=== PATIENT | female | born 1960 | race Caucasian/White ===

== ENCOUNTER → 2016-09-20 | Outpatient (CLI) | payer MEDICARE, OTHER ==
[2016-09-20 10:20] LABS: ALT 55 U/L (9-52); AST 34 U/L (14-36); Alkaline Phosphatase 74 U/L (38-126); Anion Gap 8 mmol/L; Blood Urea Nitrogen 21 mg/dL (7-17); Calcium 9.6 mg/dL (8.4-10.2); Carbon Dioxide 31 mmol/L (22-30); Chloride 102 mmol/L (98-107); Cholesterol 174 mg/dL (<200); Glucose 122 mg/dL (74-99); HDL Cholesterol 69 mg/dL (40-60); Non-African American GFR(MDRD) >60 (>60 ml/min/1.73 sqM); Potassium 4.5 mmol/L (3.5-5.1); Sodium 141 mmol/L (137-145); Total Bilirubin 0.9 mg/dL (0.2-1.3); Total Protein 7.5 g/dL (6.3-8.2); Triglycerides 134 mg/dL (<150)
== END | disposition home or self-care (01) ==
LOC: LABWHC1 09:05
PROVIDERS: ATTEND Internal Medicine
DX: E03.9 Hypothyroidism, unspecified (principal); E88.81 Metabolic syndrome and other insulin resistance; E11.65 Type 2 diabetes mellitus with hyperglycemia
CPT/HCPCS: 36415; 80053; 80061; 82043; 84439; 84443

== ENCOUNTER → 2016-11-16 | Outpatient (CLI) | payer MEDICARE, OTHER ==
--- NOTE | 2016-11-16 09:42 | US ---
EXAMINATION TYPE: US abdomen complete DATE OF EXAM: 11/16/2016 COMPARISON: 2009 ultrasound abdomen 07/16/2009 CLINICAL HISTORY: R94.5 Abn Liver function test K76.0 Fatty Liver. Pt had lap band 2009, removed 2015 EXAM MEASUREMENTS: Liver Length: 16.9 cm Gallbladder Wall: 0.2 cm CBD: 0.8 cm Spleen: 12.4 cm Right Kidney: 10.7 x 4.6 x 5.2 cm Left Kidney: 10.4 x 4.1 x 4.8 cm Pancreas: wnl, portions seen Liver: wnl heterogenous. Some echogenic signal appears to be at the falciform ligament. This is not clearly identified on the comparison 2009 comparison. Consider follow-up ultrasound. Gallbladder: wnl Evidence for sonographic Barillas's sign: No CBD: wnl Spleen: wnl Right Kidney: No hydronephrosis or masses seen Left Kidney: No hydronephrosis or masses seen Upper IVC: wnl Abd Aorta: wnl IMPRESSION: 1. Echogenic area within the region of the falciform ligament likely is of normal finding. However, t his area was not identified 2009. Recommend short-term follow-up ultrasound in 3 months to reevaluate the liver.
--- NOTE | 2016-11-16 11:13 | US ---
EXAMINATION TYPE: US transvaginal DATE OF EXAM: 11/16/2016 COMPARISON: 2014 CLINICAL HISTORY: R10.2 Pelvic and Perineal Pain. TECHNIQUE: Transvaginal (TV) Date of LMP: 1999 EXAM MEASUREMENTS: Uterus: Surgically absent cm Endometrial Stripe: Surgically absent Right Ovary: 1.9 X 1.1 X 1.4 cm Left Ovary: Surgically absent cm 1. Uterus: Surgically absent 2. Endometrium: Surgically absent 3. Right Ovary: Surgically absent 4. Left Ovary: portions seen wnl 5. Bilateral Adnexa: wnl 6. Posterior cul-de-sac: wnl IMPRESSION: 1. Normal postsurgical pelvic ultrasound
== END | disposition home or self-care (01) ==
LOC: RADUSWWP 08:25
PROVIDERS: ATTEND Internal Medicine Gastroenterology
DX: K76.0 Fatty (change of) liver, not elsewhere classified (principal); K59.00 Constipation, unspecified; R94.5 Abnormal results of liver function studies
CPT/HCPCS: 76700; 76830

== ENCOUNTER → 2016-11-16 | Outpatient (CLI) | payer MEDICARE, OTHER | END | disposition home or self-care (01) | LOC: RADUSWWP 08:29 | PROVIDERS: ATTEND Family Medicine | DX: Z53.9 Procedure and treatment not carried out, unspecified reason (principal) ==

== ENCOUNTER → 2017-02-27 | Outpatient (CLI) | payer MEDICARE, OTHER ==
--- NOTE | 2017-02-27 11:18 | US ---
EXAMINATION TYPE: US abdomen complete DATE OF EXAM: 02/27/2017 COMPARISON: Complete abdominal ultrasound November 16, 2016 CLINICAL HISTORY: R94.5 Abn Liver function tests, K76.0 Fatty liver. Fatty liver, elevated LFT's, obe se patient EXAM MEASUREMENTS: Liver Length: 19.6 cm Gallbladder Wall: 0.2 cm CBD: 0.8 cm Spleen: 12.5 cm Right Kidney: 11.2 x 4.9 x 6.1 cm Left Kidney: 12.3 x 5.2 x 5.9 cm Pancreas: visualized portions wnl, tail obscured by overlying midline bowel gas Liver: enlarged at 19.6cm, course echotexture, increased echogenicity throughout Gallbladder: wnl Evidence for sonographic Barillas's sign: no CBD: Mildly dilated at 0.8cm Spleen: wnl Right Kidney: wnl Left Kidney: wnl Upper IVC: wnl Abd Aorta: wnl The visualized liver remains heterogeneously hyperechoic. Evaluation for focal masses is suboptimal d ue to the heterogeneity. No intrahepatic ductal dilatation is seen. The intrahepatic portion of the I VC and visualized abdominal aorta are within normal limits. There is no evidence of cholelithiasis. Common bile duct is stable and mildly dilated. The visualized portions of the pancreas are homogeno us. The spleen is unremarkable. Kidneys are symmetric and free of hydronephrosis. No renal lesions are seen. IMPRESSION: Heterogeneous hyperechoic appearance of liver is likely product of diffuse fatty infiltra tion, underlying hepatocellular disease is not excluded. No significant change from prior ultrasound is noted.
== END | disposition home or self-care (01) ==
LOC: RADUSWWP 08:23
PROVIDERS: ATTEND Internal Medicine Gastroenterology
DX: R93.2 Abnormal findings on diagnostic imaging of liver and biliary tract (principal); R94.5 Abnormal results of liver function studies; R93.5 Abnormal findings on diagnostic imaging of other abdominal regions, including retroperitoneum; K76.0 Fatty (change of) liver, not elsewhere classified
CPT/HCPCS: 36415; 76700; 80076; 83036; 84439; 84443; 84481

== ENCOUNTER → 2017-02-27 | Outpatient (CLI) | payer MEDICARE, OTHER ==
[2017-02-27 11:04] LABS: Bilirubin, Delta 0.2 mg/dL (0.0-0.2); Total Bilirubin 0.7 mg/dL (0.2-1.3); Total Protein 6.9 g/dL (6.3-8.2)
[2017-02-27 13:31] LABS: Hemoglobin A1C 5.8 % (4.2-6.1)
== END | disposition home or self-care (01) ==
LOC: LABWHC1 09:13
PROVIDERS: ATTEND Internal Medicine Gastroenterology
DX: E03.9 Hypothyroidism, unspecified (principal); E11.65 Type 2 diabetes mellitus with hyperglycemia; R79.89 Other specified abnormal findings of blood chemistry
CPT/HCPCS: 36415; 80076; 83036; 84439; 84443; 84481

== ENCOUNTER → 2017-08-02 | Outpatient (CLI) | payer MEDICARE, OTHER ==
--- NOTE | 2017-08-03 11:16 | BD ---
EXAMINATION TYPE: MG DEXA axial skeleton. DATE OF EXAM: 08/02/2017 COMPARISON: NONE CLINICAL HISTORY: Z13.820 Screening for Osteoporosis Height: 5 FT 2 IN Weight: 260 FRAX RISK QUESTIONS: Alcohol (3 or more units per day): NO Family History (Parent hip fracture): NO Glucocorticoids (More than 3mos): NO (Ex: prednisone, prednisolone, methylprednisolone, dexamethasone, and hydrocortisone). History of Fracture in Adulthood: YES Secondary Osteoporosis: 1. Type 1 Diabetes: NO 2. Hyperthyroidism: NO 3. Menopause before 45: NO 4. Malnutrition: NO 5. Chronic liver disease: YES Rheumatoid Arthritis: NO Current Tobacco Use: NO RISK FACTORS HISTORY OF: Surgery to Spine/Hip(right/left)/Wrist (right/left): LUMBAR SURG DISC 4-5 SURG 2012 LUMBAR DISC 3 201 7 Family History of Osteoporosis: YES Active: NO Postmenopausal woman: PART HYST AGE 39 MEDICATIONS: Thyroid Medications: YES Which medication: SYNTHROID How Lon YEARS Additional Medications: ANTIDEPRESSANTS, SYNTHROID, PROTONIX, PROZAC,SERAQUEL,METFORMIN, CHOLESTEROL MEDS, RESTASIS,ASPIRIN, MULTI VIT, BIOTIN, OMEGA 3 Additional History: EXAM MEASUREMENTS: Bone mineral density about the R hip (g/cm2): 1.030 Bone mineral density about the L hip (g/cm2): 0.970 T Score values are as follows: -----R Neck: -0.1 -----L Neck: -0.5 -----R Total: 0.6 -----L Total: 0.8 Bone mineral density has: DECREASED -0.5 % since study of: 2014 IMPRESSION: No evidence for osteoporosis or osteopenia. NOTE: T-SCORE=SD OF THE YOUNG ADULT MEAN.
--- NOTE | 2017-08-06 08:49 | MM ---
Reason for exam: clinical finding. Last mammogram was performed 5 years and 7 months ago. History: Patient is postmenopausal and has history of endometrial cancer at age 39. July 2005. Indicated problem(s): pain in both breasts. Physical Findings: Nurse did not find any significant physical abnormalities on exam. MG 3D Diag Mammo W/Cad JASON Bilateral CC and MLO view(s) were taken. Prior study comparison: March 09, 2016, mammogram. March 08, 2015, mammogram. December 25, 2011, bilateral digital screening mammo w/CAD. October 14, 2010, bilateral digital screening mammo w/CAD. The breast tissue is almost entirely fat. No significant new findings when compared with previous films. These results were verbally communicated with the patient and result sheet given to the patient on 08/02/17. ASSESSMENT: Incomplete: need additional imaging evaluation, BI-RAD 0 RECOMMENDATION: Ultrasound of both breasts.
--- NOTE | 2017-08-06 08:52 | USB ---
Reason for exam: additional evaluation requested from abnormal screening. History: Patient is postmenopausal and has history of endometrial cancer at age 39. Reductions, July 2005. US Breast Axilla RT Right breast axilla ultrasound demonstrates a 0.3 x 0.7 x 0.4cm node at the axilla and a 0.4 x 0.3 x 0.4cm round area to small to characterize, maybe a lymph node but does not have the typical appearance. These results were verbally communicated with the patient and result sheet given to the patient on 08/02/17. ASSESSMENT: Probably benign, BI-RAD 3 RECOMMENDATION: Ultrasound of the right breast in 6 months. (axilla and upper outer quadrant) Manage on a clinical basis with regard to axillary pain. MTDD
--- NOTE | 2017-08-06 08:54 | USB ---
Reason for exam: additional evaluation requested from abnormal screening. History: Patient is postmenopausal and has history of endometrial cancer at age 39. Reductions, July 2005. US Breast Axilla LT Left breast axilla ultrasound demonstrates a 0.8 x 0.4 x 0.5cm node at the axilla and a 0.9 x 0.2 x 0.8cm node at the axilla. These results were verbally communicated with the patient and result sheet given to the patient on 08/02/17. ASSESSMENT: Probably benign, BI-RAD 3 RECOMMENDATION: Clinical management of the left breast. Manage on a clinical basis with regard to axillary pain.
== END | disposition home or self-care (01) ==
LOC: RADMAMWWP 14:57
PROVIDERS: ATTEND Family Medicine
DX: N64.4 Mastodynia (principal); R22.9 Localized swelling, mass and lump, unspecified; Z13.820 Encounter for screening for osteoporosis
CPT/HCPCS: 77080; 77066; 76642; G0279

== ENCOUNTER → 2017-09-04 | Outpatient (CLI) | payer MEDICARE, OTHER ==
[2017-09-04 14:01] LABS: Albumin 4.5 g/dL (3.5-5.0); Bilirubin, Delta 0.3 mg/dL (0.0-0.2); Bilirubin,Unconjugated 0.5 mg/dL (0.0-1.1); Total Bilirubin 0.8 mg/dL (0.2-1.3); Total Protein 7.1 g/dL (6.3-8.2)
--- NOTE | 2017-09-04 15:00 | XR ---
Lumbar spine HISTORY: Pain 7 views of the lumbar spine submitted to include flexion and extension views. Comparison made to lumbar MRI 07/03/2013 Posterior fusion change at L4-5 is noted with associated loss of disc height, intervertebral spacing material present. There is anatomic alignment. Bone mineralization is reduced. Loss of disc height al so present L3-4. There is multilevel spondylosis present. No evident spondylolysis. Spinal curvature may be due to patient rotation. Sclerosis present in the posterior elements of the lower lumbar spine . IMPRESSION: Postop changes, degenerative disc disease, osteopenia. Facet arthropathy.
[2017-09-04 22:53] LABS: Hemoglobin A1C 6.5 % (4.0-6.0)
== END | disposition home or self-care (01) ==
LOC: LABWHC1 12:50
PROVIDERS: ATTEND Nurse Practitioner Family
DX: M51.16 Intervertebral disc disorders with radiculopathy, lumbar region (principal); E78.4 Other hyperlipidemia; K76.0 Fatty (change of) liver, not elsewhere classified; R94.5 Abnormal results of liver function studies; M46.96 Unspecified inflammatory spondylopathy, lumbar region; E55.9 Vitamin D deficiency, unspecified; Z13.1 Encounter for screening for diabetes mellitus; Z98.890 Other specified postprocedural states
CPT/HCPCS: 36415; 72114; 80061; 80076; 82306; 82947; 83036; 84443

== ENCOUNTER → 2018-02-13 | Outpatient (CLI) | payer MEDICARE, OTHER ==
--- NOTE | 2018-02-13 11:07 | MM ---
Reason for exam: additional evaluation requested from prior study. Last mammogram was performed 6 months ago. History: Patient is postmenopausal and has history of endometrial cancer at age 39. ReductionsJuly 2005. Physical Findings: Nurse did not find any significant physical abnormalities on exam. MG 3D Diag Mammo W/Cad JASON Bilateral CC and MLO view(s) were taken. Prior study comparison: August 02, 2017, bilateral MG 3d diag mammo w/cad JASON. March 09, 2016, mammogram. The breast tissue is almost entirely fat. There is no discrete abnormality. No significant new findings when compared with previous films. These results were verbally communicated with the patient and result sheet given to the patient on 02/13/18. ASSESSMENT: Incomplete: need additional imaging evaluation, BI-RAD 0 RECOMMENDATION: Ultrasound of both breasts. Manage patient on a clinical basis.
--- NOTE | 2018-02-13 11:21 | USB ---
Reason for exam: additional evaluation requested from abnormal screening. History: Patient is postmenopausal and has history of endometrial cancer at age 39. Reductions, July 2005. US Breast BILAT Right complete breast ultrasound includes all four quadrants, the retroareolar region and axilla. Finding demonstrates a 4.4 x 1.5 x 3.5cm vascular lesion, probable lymph node at the axilla. Left complete breast ultrasound includes all four quadrants, the retroareolar region and axilla. Finding demonstrates a 4.0 x 1.2 x 2.2cm vascular lesion, probable lymph node at the axilla. These results were verbally communicated with the patient and result sheet given to the patient on 02/13/18. ASSESSMENT: Benign, BI-RAD 2 RECOMMENDATION: Routine screening mammogram of both breasts in 1 year. Manage patient on a clinical basis.
== END | disposition home or self-care (01) ==
LOC: RADMAMWWP 08:55
PROVIDERS: ATTEND Physician Assistant Medical
DX: R92.8 Other abnormal and inconclusive findings on diagnostic imaging of breast (principal); N64.4 Mastodynia
CPT/HCPCS: 77066; 76641; G0279; 77062

== ENCOUNTER → 2018-02-26 | Outpatient (CLI) | payer MEDICARE, OTHER ==
--- NOTE | 2018-02-26 10:01 | US ---
EXAMINATION TYPE: US abdomen complete DATE OF EXAM: 02/26/2018 COMPARISON: Prior complete abdominal ultrasound February 27, 2017 CLINICAL HISTORY: Epigastric R10.13 and LUQ pain R10.12. EXAM MEASUREMENTS: Liver Length: 18.4 cm Gallbladder Wall: 0.3 cm CBD: 0.6 cm Spleen: 12.4 cm Right Kidney: 11.2 x 4.0 x 5.0 cm Left Kidney: 11.9 x 4.9 x 5.4 cm Morbidly obese patient, technically difficult and limited study. Pancreas: Obscured by bowel gas Liver: Unable to penetrate, enlarged, increased attenuation Gallbladder: wnl Evidence for sonographic Barillas's sign: No CBD: wnl Spleen: wnl Right Kidney: Superior pole obscured by bowel gas Left Kidney: wnl Upper IVC: wnl Abd Aorta: mostly obscured by overlying bowel gas The visualized liver remains heterogeneously hyperechoic. Evaluation for focal masses is suboptimal d ue to the heterogeneity. The intrahepatic portion of the IVC and proximal abdominal aorta are within normal limits. There is no evidence of cholelithiasis. Common bile duct is unremarkable. The visua lized portions of the pancreas are homogenous. The spleen is unremarkable. Kidneys are symmetric an d free of hydronephrosis. No renal lesions are seen. IMPRESSION: Suboptimal study, redemonstration of diffuse fatty infiltration of liver. No new or acute finding is identified on the images saved to account for patient's symptoms.
== END ==
LOC: RADUSWWP 08:52
PROVIDERS: ATTEND Internal Medicine Gastroenterology
DX: K76.0 Fatty (change of) liver, not elsewhere classified (principal)
CPT/HCPCS: 76700

== ENCOUNTER → 2018-04-02 | Outpatient (CLI) | payer MEDICARE, OTHER ==
--- NOTE | 2018-04-03 10:35 | US ---
EXAMINATION TYPE: US transvaginal DATE OF EXAM: 04/02/2018 COMPARISON: US CLINICAL HISTORY: R10.9 Unspecified abdominal pain. Pt states hysterectomy and left oophorectomy in 2 000, pt not on HRT's TECHNIQUE: Transvaginal (TV). Transvaginal sonographic images of the pelvis were acquired. Date of LMP: in 1999 EXAM MEASUREMENTS: Right Ovary: 2.8 x 2.2 x 3.0 cm 1. Uterus: Surgically absent 2. Endometrium: Surgically absent 3. Right Ovary: wnl, similar appearance to scan in 2014 4. Left Ovary: Surgically absent 5. Bilateral Adnexa: wnl 6. Posterior cul-de-sac: wnl IMPRESSION: 1. Visualized postsurgical pelvis is unremarkable.
== END | disposition home or self-care (01) ==
LOC: RADUSWWP 16:24
PROVIDERS: ATTEND Family Medicine
DX: R10.9 Unspecified abdominal pain (principal); Z90.710 Acquired absence of both cervix and uterus; Z90.721 Acquired absence of ovaries, unilateral
CPT/HCPCS: 76830

== ENCOUNTER → 2018-08-26 | Day surgery (SDC) | payer MEDICARE, OTHER ==
[2018-08-22 14:53] VITALS: BMI 46.0
[~2018-08-26] MED LIST: GLYCOPYRROLATE 0.2 MG/ML 2 ML VIAL ONE; KETAMINE 10 MG/ML 20 ML VIAL ONE; LACTATED RINGERS 1,000 ML IV SCH; LIDOCAINE 1% INJ 10MG/ML (20 ML MDV) ONE; PROPOFOL 10 MG/ML 20 ML VIAL IV ONE
[2018-08-26 12:17] VITALS: TEMP 98.8
[2018-08-26 12:21] LABS: Glucose,Whole Blood 134 mg/dL (75-99)
--- NOTE | 2018-08-26 12:38 | P.GSHP ---
History of Present Illness H&P Date: 08/26/18 CHIEF COMPLAINT: GERD HISTORY OF PRESENT ILLNESS: The patient is a 58-year-old female who presents reports gastroesophageal reflux disease. Upper endoscopy was offered for further evaluation and management. PAST MEDICAL HISTORY: Please see list. PAST SURGICAL HISTORY: Please see list. MEDICATIONS: Please see list. ALLERGIES: Please see list. SOCIAL HISTORY: No illicit drug use FAMILY HISTORY: No reports of Crohn disease or ulcerative colitis. REVIEW OF ORGAN SYSTEMS: CONSTITUTIONAL: No reports of fevers or chills. GI: Denies any blood in stools or constipation. PHYSICAL EXAM: VITAL SIGNS: Stable GENERAL: Well-developed and pleasant in no acute distress. HEENT: No scleral icterus. Extraocular movements grossly intact. Moist buccal mucosa. NECK: Supple without lymphadenopathy. CHEST: Unlabored respirations. Equal bilateral excursions. CARDIOVASCULAR: Regular rate and rhythm. Distal 2+ pulses. ABDOMEN: Soft, nondistended. MUSCULOSKELETAL: No clubbing, cyanosis, or edema. ASSESSMENT: 1. Gastroesophageal reflux disease PLAN: 1. Recommend proceeding with an upper endoscopy Past Medical History Past Medical History: Diabetes Mellitus, GERD/Reflux, Liver Disease, Skin Disorder, Thyroid Disorder Additional Past Medical History / Comment(s): having abdominal pain,non alcoholic fatty liver disease, hepatitis A 40 yrs ago, History of Any Multi-Drug Resistant Organisms: None Reported Past Surgical History: Back Surgery, Breast Surgery, Hysterectomy, Orthopedic Surgery Additional Past Surgical History / Comment(s): francoise eyelids, francoise breast reduction, lap band no fluid present, l4-l5 fusion with plates/screws/cage, L-3 LAMINECTOMY, HYSTERECTOMY WITH rt ovary remainING, lt rot cuff, rt foot tendon & plantar fasciitis release, COLONOSCOPY, EGD Past Anesthesia/Blood Transfusion Reactions: Family History of Problems w/ Anesthesia, Motion Sickness, Postoperative Nausea & Vomiting (PONV) Additional Past Anesthesia/Blood Transfusion Reaction / Comment(s): mother and sister ponv Smoking Status: Never smoker - Past Family History Mother Family Medical History: Congestive Heart Failure (CHF), Coronary Artery Disease (CAD), Hypertension, Myocardial Infarction ([place]) Additional Family Medical History / Comment(s): emphysema Father Family Medical History: Cancer, Coronary Artery Disease (CAD), Hypertension Additional Family Medical History / Comment(s): lung Medications and Allergies Home Medications Medication Instructions Recorded Confirmed Type Aspirin 81 mg PO DAILY 08/04/15 08/26/18 History Cholecalciferol [Vitamin D3] 5,000 unit PO DAILY 08/04/15 08/26/18 History Colesevelam [Welchol] 1,875 mg PO BID 08/04/15 08/26/18 History Esomeprazole Magnesium [NexIUM] 40 mg PO HS 08/04/15 08/26/18 History FLUoxetine HCL [PROzac] 80 mg PO QAM 08/04/15 08/26/18 History Ibuprofen [Motrin] 600 mg PO Q8HR PRN 08/04/15 08/26/18 History Levothyroxine Sodium [Synthroid] 112 mcg PO QAM 08/04/15 08/26/18 History Multivitamins, Thera [Multivitamin] 1 tab PO DAILY 08/04/15 08/26/18 History Phentermine HCl [Adipex-P] 37.5 mg PO QAM 08/04/15 08/26/18 History QUEtiapine [SEROquel] 200 mg PO 1700 08/04/15 08/26/18 History QUEtiapine [SEROquel] 600 mg PO HS 08/04/15 08/26/18 History clonazePAM [KlonoPIN] 1 mg PO 0800,1300 08/04/15 08/26/18 History clonazePAM [KlonoPIN] 2 mg PO HS 08/04/15 08/26/18 History cycloSPORINE 0.05% OPHTH SOLN 1 drops BOTH EYES BID 08/04/15 08/26/18 History [Restasis 0.05% Ophth Soln] metFORMIN HCL [Metformin HCl ER] 250 mg PO TID 08/04/15 08/26/18 History Allergies Allergy/AdvReac Type Severity Reaction Status Date / Time adhesive tape Allergy mcclure skin Verified 08/26/18 12:01 latex Allergy Anaphylaxis Verified 08/26/18 12:01 narcotics AdvReac states Uncoded 08/26/18 12:01 "very sensitive sedative effect" Surgical - Exam Vital Signs Temp Pulse Resp BP Pulse Ox 98.8 F 75 17 141/69 95 08/26/18 12:14 08/26/18 12:14 08/26/18 12:14 08/26/18 12:14 08/26/18 12:14 Results - Labs Abnormal Lab Results - Last 24 Hours (Table) 08/26/18 Range/Units 12:13 POC Glucose (mg/dL) 134 H (75-99) mg/dL
--- NOTE | 2018-08-26 14:05 | P.PCN ---
Date of Procedure: 08/26/18 Description of Procedure: PREOPERATIVE DIAGNOSIS: Gastroesophageal reflux disease. Morbid obesity. POSTOPERATIVE DIAGNOSIS: Morbid obesity. Gastritis. Gastroesophageal reflux disease. OPERATION: Esophagogastroduodenoscopy with biopsies along antrum. SURGEON: Richa Dwyer MD ANESTHESIA: MAC. INDICATIONS: The patient is a 58-year-old female who presents with a history of reflux disease. Benefits and risks of the procedure were described. Informed consent was obtained. DESCRIPTION: The patient was brought into the endoscopy suite and laid in the left lateral decubitus position. An Olympus gastroscope was passed along the posterior oropharynx down to the distal esophagus where the squamocolumnar junction was encountered at 36 cm from the incisors. The stomach was entered and no bile reflux was found. Additional findings are listed below. Biopsies with cold forceps were obtained of the antrum. The first through third portion of the duodenum was examined and unremarkable. Retroflexion of the scope confirmed Hill grade 2 lower esophageal valve. The squamocolumnar junction demonstrated LA grade B erosive esophagitis. The stomach was desufflated. The patient tolerated the procedure well. FINDINGS: Squamocolumnar junction 36 cm from the incisors. Diaphragmatic hiatus at 36 cm. Hill grade 2 lower esophageal valve. LA grade B erosive esophagitis. No active duodenitis. Chronic gastritis, superficial and chronic RECOMMENDATIONS: Upper endoscopy as needed. Plan - Discharge Summary Discharge Rx Participant: Yes New Discharge Prescriptions: No Action Ibuprofen [Motrin] 600 mg PO Q8HR PRN PRN Reason: Pain Colesevelam [Welchol] 1,875 mg PO BID cycloSPORINE 0.05% OPHTH SOLN [Restasis 0.05% Ophth Soln] 1 drops BOTH EYES BID Multivitamins, Thera [Multivitamin] 1 tab PO DAILY Cholecalciferol [Vitamin D3] 5,000 unit PO DAILY Aspirin 81 mg PO DAILY metFORMIN HCL [Metformin HCl ER] 250 mg PO TID Esomeprazole Magnesium [NexIUM] 40 mg PO HS Phentermine HCl [Adipex-P] 37.5 mg PO QAM Levothyroxine Sodium [Synthroid] 112 mcg PO QAM clonazePAM [KlonoPIN] 2 mg PO HS QUEtiapine [SEROquel] 600 mg PO HS QUEtiapine [SEROquel] 200 mg PO 1700 clonazePAM [KlonoPIN] 1 mg PO 0800,1300 FLUoxetine HCL [PROzac] 80 mg PO QAM Discharge Medication List Aspirin 81 mg PO DAILY 08/04/15 [History] Cholecalciferol [Vitamin D3] 5,000 unit PO DAILY 08/04/15 [History] Colesevelam [Welchol] 1,875 mg PO BID 08/04/15 [History] Esomeprazole Magnesium [NexIUM] 40 mg PO HS 08/04/15 [History] FLUoxetine HCL [PROzac] 80 mg PO QAM 08/04/15 [History] Ibuprofen [Motrin] 600 mg PO Q8HR PRN 08/04/15 [History] Levothyroxine Sodium [Synthroid] 112 mcg PO QAM 08/04/15 [History] Multivitamins, Thera [Multivitamin] 1 tab PO DAILY 08/04/15 [History] Phentermine HCl [Adipex-P] 37.5 mg PO QAM 08/04/15 [History] QUEtiapine [SEROquel] 200 mg PO 1700 08/04/15 [History] QUEtiapine [SEROquel] 600 mg PO HS 08/04/15 [History] clonazePAM [KlonoPIN] 1 mg PO 0800,1300 08/04/15 [History] clonazePAM [KlonoPIN] 2 mg PO HS 08/04/15 [History] cycloSPORINE 0.05% OPHTH SOLN [Restasis 0.05% Ophth Soln] 1 drops BOTH EYES BID 08/04/15 [History] metFORMIN HCL [Metformin HCl ER] 250 mg PO TID 08/04/15 [History] Follow up Appointment(s)/Referral(s): [facility],. [NON-STAFF] - 08/29/18 Patient Instructions/Handouts: Gastroesophageal Reflux Disease (DC), Gastritis (DC) Discharge Disposition: HOME SELF-CARE
[2018-08-26 14:11] VITALS: RESP 18
[2018-08-26 14:25] VITALS: BP 143/81; PULSE 77
== END | disposition home or self-care (01) ==
LOC: ORWHC2ENDO 11:07
PROVIDERS: ATTEND Surgery Plastic and Reconstructive Surgery
DX: K21.0 Gastro-esophageal reflux disease with esophagitis (principal); K29.70 Gastritis, unspecified, without bleeding; K31.9 Disease of stomach and duodenum, unspecified; E07.9 Disorder of thyroid, unspecified; E11.9 Type 2 diabetes mellitus without complications; E66.01 Morbid (severe) obesity due to excess calories; Z82.49 Family history of ischemic heart disease and other diseases of the circulatory system; Z88.5 Allergy status to narcotic agent; Z98.84 Bariatric surgery status; Z68.42 Body mass index [BMI] 45.0-49.9, adult; F32.9 Major depressive disorder, single episode, unspecified; F41.9 Anxiety disorder, unspecified; Z79.82 Long term (current) use of aspirin; Z91.040 Latex allergy status; Z79.890 Hormone replacement therapy; Z79.899 Other long term (current) drug therapy; N28.9 Disorder of kidney and ureter, unspecified
CPT/HCPCS: 88305; 43239; J2001; J2704

== ENCOUNTER → 2018-08-29 | Outpatient (CLI) | payer MEDICARE, OTHER ==
--- NOTE | 2018-08-29 08:44 | P.HPBAR ---
Bariatric H&P - History & Physicial H&P Date: 08/29/18 History & Physicial: Visit/CC: Patient initial contact: Initial weight: Initial weight in pounds: Height: Initial BMI: Last weight: Current weight: Current weight in pounds: Current BMI: [place] body weight (based on NIH guidelines): Excess body weight loss: The patient is a 58 year-old F who presents for Bariatric Assessment. HPI: She had a band in 2006 that was removed in 2008 due to complications from the adjustable band. She is s/p upper endoscopy. She has severe GERD. ABDOMEN: Panniculitis. Pannus over 10 pounds ASSESSMENT: Morbid obesity PLAN: 1. Medical and cardiac clearance pending 2. For severe reflux, gastric bypass described. 3. Need transfer of records Past Medical History Past Medical History: Diabetes Mellitus, GERD/Reflux, Liver Disease, Skin Disorder, Thyroid Disorder Additional Past Medical History / Comment(s): having abdominal pain,non alcoholic fatty liver disease, hepatitis A 40 yrs ago, History of Any Multi-Drug Resistant Organisms: None Reported Past Surgical History: Back Surgery, Breast Surgery, Hysterectomy, Orthopedic Surgery Additional Past Surgical History / Comment(s): francoise eyelids, francoise breast reduction, lap band no fluid present, l4-l5 fusion with plates/screws/cage, L-3 LAMINECTOMY, HYSTERECTOMY WITH rt ovary remainING, lt rot cuff, rt foot tendon & plantar fasciitis release, COLONOSCOPY, EGD Past Anesthesia/Blood Transfusion Reactions: Family History of Problems w/ Anesthesia, Motion Sickness, Postoperative Nausea & Vomiting (PONV) Additional Past Anesthesia/Blood Transfusion Reaction / Comm: mother and sister ponv Smoking Status: Never smoker - Past Family History Mother Family Medical History: Congestive Heart Failure (CHF), Coronary Artery Disease (CAD), Hypertension, Myocardial Infarction ([place]) Additional Family Medical History / Comment(s): emphysema Father Family Medical History: Cancer, Coronary Artery Disease (CAD), Hypertension Additional Family Medical History / Comment(s): lung Bariatric Checklist Checklist: Plan: Checklist: EGD: 1. Hiatal hernia: 2. H. Pylori: HgbA1c: Vitamin D: Smoking: Never smoker Primary care physician referral: Psychiatry clearance: Cardiology clearance: Sleep study: Diet journal: VTE risk score: VTE risk level: Rehab needs at discharge:
[2018-08-29 11:58] VITALS: BP 132/89; PULSE 98; TEMP 98.3; BMI 46.8
== END | disposition home or self-care (01) ==
LOC: BARWHC3 08:31
PROVIDERS: ATTEND Surgery Plastic and Reconstructive Surgery
DX: E66.01 Morbid (severe) obesity due to excess calories (principal); K21.9 Gastro-esophageal reflux disease without esophagitis; M79.3 Panniculitis, unspecified; Z98.84 Bariatric surgery status; Z90.710 Acquired absence of both cervix and uterus; Z98.890 Other specified postprocedural states; Z68.42 Body mass index [BMI] 45.0-49.9, adult
CPT/HCPCS: 99211

== ENCOUNTER → 2018-09-16 | Outpatient (CLI) | payer MEDICARE, OTHER | END | disposition home or self-care (01) | LOC: LABWHC1 12:14 | PROVIDERS: ATTEND Internal Medicine Cardiovascular Disease | DX: E78.00 Pure hypercholesterolemia, unspecified (principal) | CPT/HCPCS: 36415; 80061; 84450; 84460 ==

== ENCOUNTER → 2018-09-25 | Outpatient (CLI) | payer MEDICARE, OTHER ==
[2018-09-25 13:18] VITALS: BP 121/77; PULSE 73; RESP 16; TEMP 98.1; BMI 47.5
--- NOTE | 2018-09-25 14:45 | P.PN ---
Subjective Progress Note Date: 09/25/18 HPI: She comes in looking for the gastric bypass. She is walking 10 minutes to 30 minutes. She is chronicalling her exercise. She presents for her bypass. ABDOMEN: No issues ASSESSMENT: 1. Morbid obesity PLAN: 1. Consent reviewed 2. [place] [facility] 3. Follow up next month Objective - Vital Signs Vital signs: Vital Signs Temp 98.1 F 09/25/18 13:14 Pulse 73 09/25/18 13:14 Resp 16 09/25/18 13:14 BP 121/77 09/25/18 13:14 Pulse Ox Intake & Output 09/24/18 09/25/18 09/25/18 18:59 06:59 18:59 Weight 121.563 kg
== END | disposition home or self-care (01) ==
LOC: BARWHC3 12:48
PROVIDERS: ATTEND Surgery Plastic and Reconstructive Surgery
DX: E66.01 Morbid (severe) obesity due to excess calories (principal); Z68.42 Body mass index [BMI] 45.0-49.9, adult
CPT/HCPCS: 99211

== ENCOUNTER → 2018-10-23 | Outpatient (CLI) | payer MEDICARE, OTHER ==
[2018-10-23 16:23] VITALS: BP 154/80; PULSE 91; RESP 16; TEMP 97.7; BMI 47.2
--- NOTE | 2018-10-23 16:59 | P.PN ---
Subjective Progress Note Date: 10/23/18 DATE OF SERVICE: 10/23/2018 CHIEF COMPLAINT: Morbid obesity. HISTORY OF PRESENT ILLNESS: Leeanna Willis is a 58-year-old female who comes in for weight loss management. She is looking into the gastric bypass. She reports a history of melanoma of the skin and is pending further assessment for recurrence. She continues her medical supervised weight loss. At height of 5 feet 3 inches, her ideal body weight is 140 pounds. She comes in 266 pounds from 267 pounds, 1 month ago. She has lost 1 pounds in 1 month. Her body mass index is up from 47.5 to 47.3. She is 126 pounds overweight. PHYSICAL EXAM: VITAL SIGNS: Height 5 foot 3 inches, weight 266 pounds. BMI 47.3 Vital Signs Temp 97.7 F 10/23/18 16:20 Pulse 91 10/23/18 16:20 Resp 16 10/23/18 16:20 BP 154/80 10/23/18 16:20 Pulse Ox GENERAL: Well-developed in no acute distress. HEENT: No scleral icterus. Extraocular movements grossly intact. Hears conversational speech. No nasal drainage. NECK: Supple without lymphadenopathy. CHEST: Nonlabored respirations with equal bilateral excursions. CARDIOVASCULAR: Regular rate and regular rhythm. Distal 2+ pulses. ABDOMEN: Obese, soft, nontender, nondistended. MUSCULOSKELETAL: No clubbing, cyanosis. Gross strength 5/5 distal lower extremities. NEURO: No focal or lateralizing signs. Cranial nerves 2 through 12 grossly within normal limits. PSYCH: Appropriate affect. Alert and oriented to person, place and time. SKIN: Good skin turgor. Well perfused. ASSESSMENT: 1. Morbid obesity due to excess calories 2. Body mass index of 46.8, initial to 47.3 3. Osteoarthritis of the knees. 4. Osteoarthritis of the lower back. 5. Obstructive sleep apnea 6. Hyperlipidemia 7. Gastroesophageal reflux disease 8. Depressive disorder 9. Hypothyroidism 10. Diabetes type 2. 11. Fatty liver disease 12. Hepatitis A 13. Panniculitis 14. Elevated liver enzymes 15. Melanoma PLAN: 1. Overall, her weight loss is stable. 2. Surgical intervention is pending treatment and evaluation for melanoma. Should melanoma be present, then surgical intervention for weight loss surgery is on hold. Objective - Vital Signs Vital signs: Vital Signs Temp 97.7 F 10/23/18 16:20 Pulse 91 10/23/18 16:20 Resp 16 10/23/18 16:20 BP 154/80 10/23/18 16:20 Pulse Ox Intake & Output 10/22/18 10/23/18 10/23/18 18:59 06:59 18:59 Weight 121.109 kg
== END | disposition home or self-care (01) ==
LOC: BARWHC3 15:25
PROVIDERS: ATTEND Surgery Plastic and Reconstructive Surgery
DX: E66.01 Morbid (severe) obesity due to excess calories (principal); M17.0 Bilateral primary osteoarthritis of knee; M47.816 Spondylosis without myelopathy or radiculopathy, lumbar region; G47.33 Obstructive sleep apnea (adult) (pediatric); E78.5 Hyperlipidemia, unspecified; K21.9 Gastro-esophageal reflux disease without esophagitis; F32.9 Major depressive disorder, single episode, unspecified; E03.9 Hypothyroidism, unspecified; E11.9 Type 2 diabetes mellitus without complications; K76.0 Fatty (change of) liver, not elsewhere classified; B15.9 Hepatitis A without hepatic coma; M79.3 Panniculitis, unspecified; R74.8 Abnormal levels of other serum enzymes; C43.9 Malignant melanoma of skin, unspecified; Z68.42 Body mass index [BMI] 45.0-49.9, adult
CPT/HCPCS: 99211

== ENCOUNTER → 2018-11-27 | Outpatient (CLI) | payer MEDICARE, OTHER ==
[2018-11-27 12:00] VITALS: BP 147/75; PULSE 87; TEMP 98.7; BMI 46.4
--- NOTE | 2018-11-27 12:42 | P.PN ---
Subjective Progress Note Date: 11/27/18 DATE OF SERVICE: 11/27/2018 CHIEF COMPLAINT: Morbid obesity. HISTORY OF PRESENT ILLNESS: Leeanna Willis is a 58-year-old female who is looking into the gastric bypass. She comes in with concerns regarding time frame for surgery and expectations. She wants a date for surgery. She is aware that da mickey are at least 1 month out at best. I empathized with her frustration and openly addressed her complaint of her request for timely documentation. I apologized for not meeting her expectation and offered that we can facilitate transfer to another provider or facility of her choice. Separately, she is completing medically supervised weight loss. No reports of abdominal pain. She has been cleared by her brush polisher that no further resection is needed for her history of melanoma of her leg. At height of 5 feet 3 inches, her ideal body weight is 140 pounds. Her highest most recent weight is 273 pounds. She comes in 261 pounds from 266 pounds, 1 month ago. She has lost 5 pounds in 1 month. Her body mass index was 48.5 to 46.4. She is 121 pounds overweight. She has lost 12 pounds in 3 months. PHYSICAL EXAM: VITAL SIGNS: Height 5 foot 3 inches, weight 261 pounds. BMI 46.4 Vital Signs Temp 98.7 F 11/27/18 11:55 Pulse 87 11/27/18 11:55 Resp BP 147/75 11/27/18 11:55 Pulse Ox GENERAL: Well-developed in no acute distress. HEENT: No scleral icterus. Extraocular movements grossly intact. Hears conversational speech. No nasal drainage. NECK: Supple without lymphadenopathy. CHEST: Nonlabored respirations with equal bilateral excursions. CARDIOVASCULAR: Regular rate and regular rhythm. Distal 2+ pulses. ABDOMEN: Obese, soft, nontender, nondistended. MUSCULOSKELETAL: No clubbing, cyanosis. Gross strength 5/5 distal lower extremities. NEURO: No focal or lateralizing signs. Cranial nerves 2 through 12 grossly within normal limits. PSYCH: Appropriate affect. Alert and oriented to person, place and time. SKIN: Good skin turgor. Well perfused. ASSESSMENT: 1. Morbid obesity due to excess calories 2. Body mass index of 46.8, initial to 46.4 3. Osteoarthritis of the knees. 4. Osteoarthritis of the lower back. 5. Obstructive sleep apnea 6. Hyperlipidemia 7. Gastroesophageal reflux disease 8. Depressive disorder 9. Hypothyroidism 10. Diabetes type 2. 11. Fatty liver disease 12. Hepatitis A 13. Panniculitis 14. Elevated liver enzymes 15. Melanoma PLAN: 1. Overall, she has maintained 11 pound weight loss in 3 months. 2. She is motivated to proceed with bariatric procedure of her choice, gastric bypass. 3. She was encouraged to seek care at another bariatric center or other providers of her choice as she seeks surgery in an earlier time frame than currently available. Objective - Vital Signs Vital signs: Vital Signs Temp 98.7 F 11/27/18 11:55 Pulse 87 11/27/18 11:55 Resp BP 147/75 11/27/18 11:55 Pulse Ox Intake & Output 11/26/18 11/27/18 11/27/18 18:59 06:59 18:59 Weight 118.841 kg
== END | disposition home or self-care (01) ==
LOC: BARWHC3 11:19
PROVIDERS: ATTEND Surgery Plastic and Reconstructive Surgery
DX: E66.01 Morbid (severe) obesity due to excess calories (principal); Z68.42 Body mass index [BMI] 45.0-49.9, adult; M17.0 Bilateral primary osteoarthritis of knee; M47.816 Spondylosis without myelopathy or radiculopathy, lumbar region; G47.33 Obstructive sleep apnea (adult) (pediatric); E78.5 Hyperlipidemia, unspecified; K21.9 Gastro-esophageal reflux disease without esophagitis; F32.9 Major depressive disorder, single episode, unspecified; E03.9 Hypothyroidism, unspecified; E11.9 Type 2 diabetes mellitus without complications; K76.0 Fatty (change of) liver, not elsewhere classified; B15.9 Hepatitis A without hepatic coma; M79.3 Panniculitis, unspecified; C43.9 Malignant melanoma of skin, unspecified
CPT/HCPCS: 99211

== ENCOUNTER → 2019-03-24 | Outpatient (CLI) | payer MEDICARE, OTHER ==
[2019-03-24 12:18] LABS: Basophils % (A) 1 %; Eosinophils # (A) 0.1 k/uL (0-0.7); Eosinophils % (A) 2 %; HCT 40.7 % (34.0-46.0); HGB 13.7 gm/dL (11.4-16.0); Lymphocytes # (A) 1.6 k/uL (1.0-4.8); Lymphocytes % (A) 31 %; MCH 28.6 pg (25.0-35.0); MCHC 33.6 g/dL (31.0-37.0); MCV 85.2 fL (80.0-100.0); Mean Platelet Volume 6.5; Monocytes # (A) 0.3 k/uL (0-1.0); Monocytes % (A) 6 %; Neutrophils # (A) 2.9 k/uL (1.3-7.7); Neutrophils % (A) 57 %; Platelet Count 222 k/uL (150-450); RBC 4.78 m/uL (3.80-5.40); RDW 13.9 % (11.5-15.5); WBC 5.1 k/uL (3.8-10.6)
[2019-03-24 18:23] LABS: African American GFR (CKD) 108.4 (60.0-200.0); Albumin 4.5 g/dL (3.80-4.90); Albumin/Globulin Ratio 2.5 (1.60-3.17); Calcium 9.3 mg/dL (8.7-10.3); Chol/HDL Ratio 2.52; Globulin 1.8 g/dL (1.6-3.3); LDL Cholesterol,Calculated 66.2 mg/dL (0.0-131.0); Potassium 4.4 mmol/L (3.5-5.5); Total Bilirubin 0.9 mg/dL (0.2-1.2); Total Protein 6.3 g/dL (6.2-8.2); VLDL Calculation 18.8 mg/dL (5.00-40.00)
[2019-03-24 18:51] LABS: T4, Free (Free Thyroxine) 0.8 ng/dL (0.80-1.80)
[2019-03-24 19:43] LABS: Hemoglobin A1C 7.2 % (4.0-6.0)
== END | disposition home or self-care (01) ==
LOC: LABWHC1 10:22
PROVIDERS: ATTEND Internal Medicine
DX: Z00.00 Encounter for general adult medical examination without abnormal findings (principal); E03.9 Hypothyroidism, unspecified; K21.9 Gastro-esophageal reflux disease without esophagitis; E11.9 Type 2 diabetes mellitus without complications; E78.5 Hyperlipidemia, unspecified
CPT/HCPCS: 36415; 80053; 80061; 83036; 84439; 84443; 85025

== ENCOUNTER → 2019-11-24 | Outpatient (CLI) | payer MEDICARE, OTHER | END | disposition home or self-care (01) | LOC: LABWHC1 11:04 | PROVIDERS: ATTEND Physician Assistant Medical | DX: R50.9 Fever, unspecified (principal) ==

== ENCOUNTER → 2020-04-09 | Outpatient (CLI) | payer MEDICARE, OTHER ==
[2020-04-09 12:01] LABS: Basophils % (A) 1 %; Eosinophils # (A) 0.1 k/uL (0-0.7); Eosinophils % (A) 2 %; HCT 42.6 % (34.0-46.0); HGB 14.3 gm/dL (11.4-16.0); Lymphocytes # (A) 1.7 k/uL (1.0-4.8); Lymphocytes % (A) 29 %; MCH 29.9 pg (25.0-35.0); MCHC 33.7 g/dL (31.0-37.0); MCV 88.8 fL (80.0-100.0); Mean Platelet Volume 7.9; Monocytes # (A) 0.4 k/uL (0-1.0); Monocytes % (A) 6 %; Neutrophils # (A) 3.5 k/uL (1.3-7.7); Neutrophils % (A) 61 %; Platelet Count 178 k/uL (150-450); RDW 13.9 % (11.5-15.5); WBC 5.8 k/uL (3.8-10.6)
[2020-04-09 21:52] LABS: African American GFR (CKD) 107.6 (60.0-200.0); Albumin 4.6 g/dL (3.80-4.90); Albumin/Globulin Ratio 2.3 (1.60-3.17); Anion Gap 4.6 mmol/L (4.00-12.00); Calcium 9.9 mg/dL (8.7-10.3); Carbon Dioxide 35.4 mmol/L (21.6-31.8); Chol/HDL Ratio 2.63; LDL Cholesterol,Calculated 57.2 mg/dL (0.0-131.0); Non-African American GFR(CKD) 92.9 (60.0-200.0); Potassium 4.6 mmol/L (3.5-5.5); T4, Free (Free Thyroxine) 0.8 ng/dL (0.80-1.80); Total Bilirubin 1.4 mg/dL (0.3-1.2); Total Protein 6.6 g/dL (6.2-8.2); VLDL Calculation 22.8 mg/dL (5.00-40.00)
== END | disposition home or self-care (01) ==
LOC: LABWHC1 10:43
PROVIDERS: ATTEND Internal Medicine
DX: Z00.00 Encounter for general adult medical examination without abnormal findings (principal); E55.9 Vitamin D deficiency, unspecified; E53.8 Deficiency of other specified B group vitamins
CPT/HCPCS: 36415; 80053; 80061; 82306; 82607; 84439; 84443; 85025

== ENCOUNTER → 2020-04-13 | Outpatient (CLI) | payer MEDICARE, OTHER ==
--- NOTE | 2020-04-13 17:25 | US ---
EXAMINATION TYPE: US transvaginal DATE OF EXAM: 04/13/2020 COMPARISON: US 2018 CLINICAL HISTORY: 60-year-old female R10.2,Z78.0 Post-menopa. Occasional right pelvic pain, history o f hysterectomy. TECHNIQUE: Transvaginal exam only per ordering physician. Date of LMP: 20+ years ago EXAM MEASUREMENTS: Right Ovary: 2.0 x 1.5 x 1.8 cm 1. Uterus: surgically absent 2. Endometrium: surgically absent 3. Right Ovary: wnl 4. Left Ovary: surgically absent 5. Bilateral Adnexa: wnl 6. Posterior cul-de-sac: wnl IMPRESSION: Status post hysterectomy. The left ovary is also surgically absent per the supply chain systems manager. Normal small postmenopausal right ovary. No pelvic free fluid.
--- NOTE | 2020-04-13 18:18 | BD ---
EXAMINATION TYPE: Axial Bone Density DATE OF EXAM: 04/13/2020 COMPARISON: 08/02/2017 CLINICAL HISTORY: Postmenopausal screening Height: 5 FT 2 IN Weight: 264 FRAX RISK QUESTIONS: Alcohol (3 or more units per day): NO Family History (Parent hip fracture): NO Glucocorticoids (More than 3mos): NO (Ex: prednisone, prednisolone, methylprednisolone, dexamethasone, and hydrocortisone). History of Fracture in Adulthood: YES Secondary Osteoporosis: 1. Type 1 Diabetes: NO 2. Hyperthyroidism: NO 3. Menopause before 45: PART HYST AGE 38 4. Malnutrition: NO 5. Chronic liver disease: FATTY LIVER DISEASE Rheumatoid Arthritis: NO Current Tobacco Use: NO RISK FACTORS HISTORY OF: Surgery to Spine/Hip(right/left)/Wrist (right/left): LUMBAR SURG When: 2012 AND 2016 Family History of Osteoporosis: YES Active: YES Diet low in dairy products/other sources of calcium: NO Postmenopausal woman: PART [facility] AGE 38 Take estrogen and/or progesterone medications: NONE Lost more than 2 inches in height since high school: NO MEDICATIONS: Thyroid Medications: YES Which medication: SYNTHROID How Long: SINCE THE LATE Additional Medications: SYNTHROID,ANTI DEPRESSANTS, NEXIUM PROZAC, SEROQUEL, METFORMIN, CHOLESTEROL, RESTASIS, BABY ASPIRIN, CLONOPIN, BUSPAR,IRON, Additional History: GANGLION CYST REMOVED FROM WRIST EXAM MEASUREMENTS: Bone mineral density about the R hip (g/cm2): 0.954 Bone mineral density about the L hip (g/cm2): 0.933 T Score values are as follows: -----R Neck: -0.6 -----L Neck: -0.8 -----R Total: 0.3 -----L Total: 0.9 Bone mineral density has: DECREASED -1.5 % since study of: 2017 Bone mineral density about the R Wrist (g/cm2): 0.653 T Score values are as follows: -----Dist. R+U: -1.3 -----Prox. R+U: 0.1 -----Radius total: -0.3 BASELINE WRIST IMPRESSION: Normal (Values between +1 and -1 indicate normal bone mass). Consider repeating this study in 5 year s or sooner if there is some new clinical indication. NOTE: T-SCORE=SD OF THE YOUNG ADULT MEAN.
--- NOTE | 2020-04-14 09:23 | MM ---
Reason for exam: screening (asymptomatic). Last mammogram was performed 2 years and 2 months ago. History: Patient is postmenopausal and has history of endometrial cancer at age 39. July 2005. Physical Findings: A clinical breast exam by your physician is recommended on an annual basis and results should be correlated with mammographic findings. MG 3D Screening Mammo W/Cad Bilateral CC and MLO view(s) were taken. Prior study comparison: February 13, 2018, bilateral MG 3d diag mammo w/cad JASON. August 02, 2017, bilateral MG 3d diag mammo w/cad JASON. The breast tissue is almost entirely fat. There is no discrete abnormality. No significant changes when compared with prior studies. ASSESSMENT: Negative, BI-RAD 1 RECOMMENDATION: Routine screening mammogram of both breasts in 1 year.
== END | disposition home or self-care (01) ==
LOC: RADMAMWWP 12:49
PROVIDERS: ATTEND Family Medicine
DX: Z12.31 Encounter for screening mammogram for malignant neoplasm of breast (principal); R10.2 Pelvic and perineal pain; Z78.0 Asymptomatic menopausal state; Z90.710 Acquired absence of both cervix and uterus; Z90.721 Acquired absence of ovaries, unilateral
CPT/HCPCS: 76830; 77063; 77067; 77080

== ENCOUNTER → 2020-06-28 | Outpatient (CLI) | payer MEDICARE, OTHER ==
--- NOTE | 2020-06-28 14:41 | CT ---
EXAMINATION TYPE: CT lumbar spine wo con DATE OF EXAM: 06/28/2020 COMPARISON: None HISTORY: Low back pain. CT DLP: 1741 mGycm CONTRAST: Unenhanced CT of the lumbar spine was performed with axial coronal and sagittal images reviewed in th e bone and soft tissue window settings. Unenhanced CT of the lumbar spine was performed. Bone and soft tissue window settings are submitted as well as coronal and sagittal reconstructions. L1-L2: Normal disc space height. No disc herniation protrusion or central stenosis. No facet joint arthropathy. No evidence for foraminal encroachment. L2-L3: Normal disc space height. No disc herniation protrusion or central stenosis. No facet joint arthropathy. No evidence for foraminal encroachment. L3-L4: Normal disc space height. No disc herniation protrusion or central stenosis. No facet joint arthropathy. No evidence for foraminal encroachment. L4-L5: Postoperative changes noted of fusion. Pedicular screws are in place. There is normal alignmen t. No evidence for recurrent or residual disease. L5-S1: Normal disc space height. No disc herniation protrusion or central stenosis. No facet joint arthropathy. No evidence for foraminal encroachment. No paraspinal masses are identified. Lumbar segments are free if fracture. IMPRESSION: 1. Postoperative changes at L4-5 with normal alignment. Remaining lumbar levels are within normal hawley its.
== END | disposition home or self-care (01) ==
LOC: RADCTMAIN 13:59
PROVIDERS: ATTEND Orthopaedic Surgery
DX: Z98.890 Other specified postprocedural states (principal); Z88.8 Allergy status to other drugs, medicaments and biological substances
CPT/HCPCS: 72131

== ENCOUNTER → 2020-10-29 | Outpatient (CLI) | payer MEDICARE, OTHER ==
--- NOTE | 2020-10-29 08:28 | US ---
EXAMINATION TYPE: US abdomen limited DATE OF EXAM: 10/29/2020 COMPARISON: 02/26/2018 CLINICAL HISTORY: 60-year-old female R10.811Right upper quadrant abdominal ten, R74.01,. RUQ pain, el evated liver enzymes TECHNIQUE: Multiple sonographic images of the right upper quadrant are obtained. FINDINGS: EXAM MEASUREMENTS: Liver Length: 18.9 cm Gallbladder Wall: 0.2 cm CBD: 0.8 cm Right Kidney: 10.5 x 4.9 x 4.8 cm Recreation Attendant Supervisor notes:Difficult and limited study due to patient body habitus Pancreas: Only a small portion of the pancreatic body is seen. Remainder is obscured by bowel gas sh adowing. Liver: Enlarged, echogenic, and attenuating. This secondarily limits assessment for focal lesions. Gallbladder: wnl Evidence for sonographic Barillas's sign: no CBD: dilated Right Kidney: wnl IMPRESSION: 1. Hepatomegaly (18.9 cm) with at least moderate hepatic steatosis. 2. No gallstones or ancillary findings of acute cholecystitis. 3. Bile duct dilated at 8 mm. Back in 2018, it measured 6 mm. Correlate with alkaline phosphatase and bilirubin levels to exclude early biliary obstruction.
== END | disposition home or self-care (01) ==
LOC: RADUSWWP 07:01
PROVIDERS: ATTEND Family Medicine
DX: K76.0 Fatty (change of) liver, not elsewhere classified (principal); R16.0 Hepatomegaly, not elsewhere classified; E11.9 Type 2 diabetes mellitus without complications; R74.01 Elevation of levels of liver transaminase levels; K83.9 Disease of biliary tract, unspecified; Z91.048 Other nonmedicinal substance allergy status; Z91.040 Latex allergy status; Z88.5 Allergy status to narcotic agent; Z88.8 Allergy status to other drugs, medicaments and biological substances
CPT/HCPCS: 76705

== ENCOUNTER → 2020-12-31 | Outpatient (CLI) | payer MEDICARE, OTHER ==
[2021-01-01 06:23] LABS: Albumin 4.9 g/dL (3.80-4.90); Albumin/Globulin Ratio 2.13 (1.60-3.17); Bilirubin, Conjugated 0.5 mg/dL (0.20-0.40); Bilirubin,Unconjugated 0.9 mg/dL; Globulin 2.3 g/dL (1.6-3.3); Total Bilirubin 1.4 mg/dL (0.3-1.2); Total Protein 7.2 g/dL (6.2-8.2)
== END | disposition home or self-care (01) ==
LOC: LABWHC1 16:19
PROVIDERS: ATTEND Internal Medicine Gastroenterology
DX: K76.0 Fatty (change of) liver, not elsewhere classified (principal)
CPT/HCPCS: 36415; 80076

== ENCOUNTER → 2021-04-15 | Outpatient (CLI) | payer MEDICARE, OTHER ==
--- NOTE | 2021-04-19 10:15 | MM ---
Reason for exam: screening (asymptomatic). Last mammogram was performed 1 year ago. History: Patient is postmenopausal and has history of endometrial cancer at age 39. July 2005. Took hormonal contraceptives for 6 months. Physical Findings: A clinical breast exam by your physician is recommended on an annual basis and results should be correlated with mammographic findings. MG 3D Screening Mammo W/Cad Bilateral CC and MLO view(s) were taken. Prior study comparison: April 13, 2020, bilateral MG 3d screening mammo w/cad. February 13, 2018, bilateral MG 3d diag mammo w/cad JASON. There are scattered fibroglandular densities. No significant changes when compared with prior studies. ASSESSMENT: Benign, BI-RAD 2 RECOMMENDATION: Routine screening mammogram of both breasts in 1 year.
== END | disposition home or self-care (01) ==
LOC: RADMAMWWP 10:01
PROVIDERS: ATTEND Family Medicine
DX: Z12.31 Encounter for screening mammogram for malignant neoplasm of breast (principal)
CPT/HCPCS: 77063; 77067

== ENCOUNTER → 2021-06-11 | Outpatient (CLI) | payer MEDICARE, OTHER ==
[2021-06-11 16:42] LABS: Basophils # (A) 0.04 X 10*3/uL (0.00-0.10); Basophils % (A) 0.6 %; Eosinophils # (A) 0.22 X 10*3/uL (0.04-0.35); Eosinophils % (A) 3.2 %; HGB 14.6 g/dL (12.0-15.0); Lymphocytes % (A) 27.5 %; MCHC 32.4 g/dL (32.0-37.0); MCV 89.5 fL (80.0-97.0); Mean Platelet Volume 10.3 fL (9.5-12.2); Monocytes # (A) 0.58 X 10*3/uL (0.20-1.00); Monocytes % (A) 8.4 %; Neutrophils # (A) 4.17 X 10*3/uL (1.80-7.70); Neutrophils % (A) 60.2 %; Platelet Count 225 X 10*3/uL (140-440); RBC 5.03 X 10*6/uL (4.10-5.20); RDW 13.5 % (11.5-14.5); WBC 6.92 X 10*3/uL (4.50-10.00)
[2021-06-11 17:08] LABS: ALT 49 U/L (8-44); AST 31 U/L (13-35); African American GFR (CKD) 99.8 (60.0-200.0); Albumin 4.5 g/dL (3.8-4.9); Albumin/Globulin Ratio 1.77 (1.60-3.17); Alkaline Phosphatase 71 U/L (41-126); BUN/Creat Ratio 26.45 Ratio (12.00-20.00); Blood Urea Nitrogen 19.6 mg/dL (9.0-27.0); Calcium 9.8 mg/dL (8.7-10.3); Carbon Dioxide 27.6 mmol/L (20.0-27.5); Chloride 99 mmol/L (96-109); Chol/HDL Ratio 2.21 Ratio; Globulin 2.6 g/dL (1.6-3.3); Glucose 122 mg/dL (70-110); Iron 100 ug/dL (50-170); LDL Cholesterol,Calculated 57.2 mg/dL (0.0-131.0); Non-African American GFR(CKD) 86.1 (60.0-200.0); Potassium 4.5 mmol/L (3.5-5.5); Sodium 138 mmol/L (135-145); Total Protein 7.1 g/dL (6.2-8.2); VLDL Calculation 15.18 mg/dL (5.00-40.00)
== END | disposition home or self-care (01) ==
LOC: LABWHC1 09:00
PROVIDERS: ATTEND Internal Medicine
DX: Z00.00 Encounter for general adult medical examination without abnormal findings (principal)
CPT/HCPCS: 36415; 80053; 80061; 82607; 83036; 83540; 84439; 84443; 85025

== ENCOUNTER → 2021-06-20 | Outpatient (CLI) | payer MEDICARE, OTHER ==
[2021-06-21 00:34] LABS: C Reactive Protein <0.30 mg/dL (0.00-0.80); Rheumatoid Factor, Qnt <10 IU/mL (0-15)
== END | disposition home or self-care (01) ==
LOC: LABWHC1 16:20
PROVIDERS: ATTEND Physician Assistant Medical
DX: M31.0 Hypersensitivity angiitis (principal)
CPT/HCPCS: 36415; 85652; 86038; 86140; 86431

== ENCOUNTER → 2021-06-20 | Outpatient (CLI) | payer MEDICARE, OTHER ==
--- NOTE | 2021-06-21 09:08 | MR ---
EXAMINATION TYPE: MR lumbar spine wo con DATE OF EXAM: 06/20/2021 COMPARISON: CT lumbar spine 08/07/2020 HISTORY: LBP, BLE radiculopathy. Hx surgery x2 . TECHNIQUE: Multiplanar, multisequence images of the lumbar spine were acquired without IV contrast. L1-L2: Normal disc appearance without desiccation. No herniation, protrusion or disc bulging. No ca nal stenosis is present. Foramina are patent bilaterally. L2-L3: Normal disc appearance without desiccation. No herniation, protrusion or disc bulging. No ca nal stenosis is present. Foramina are patent bilaterally. L3-L4: There is facet arthropathy change, possible synovial cyst extending from the facet on the righ t causes some posterior lateral mass effect on the thecal sac No herniation, protrusion or disc bulgi ng. Circumferential extension of endplate disc encroaches minimally on the inferior aspect of the for kishor.. L4-L5: Circumferential extension of endplate disc towards the right encroaches minimally on the infer ior aspect of the foramen, no disc herniation. L5-S1: Normal disc appearance without desiccation. No herniation, protrusion or disc bulging. Forami na are patent bilaterally. There is some facet arthropathy change. Lumbar segments are intact. No paraspinal masses are identified. Conus medullaris has a normal appe arance. Patient shows posterior fusion change at L4-5, intervertebral spacing block is present, there is endplate discogenic marrow signal change, susceptibility artifact due to patient's hardware, lami nectomy changes are present status post posterior decompression. No significant spinal stenosis. Mild multilevel spondylosis with endplate discogenic marrow signal change, loss of disc height signal pre sent L3-4. IMPRESSION: Postop changes. Degenerative disc disease and facet arthropathy.
== END | disposition home or self-care (01) ==
LOC: RADMRIMAIN 15:04
PROVIDERS: ATTEND Orthopaedic Surgery
DX: M51.36 Other intervertebral disc degeneration, lumbar region (principal); M46.96 Unspecified inflammatory spondylopathy, lumbar region
CPT/HCPCS: 72148

== ENCOUNTER → 2021-07-21 | Outpatient (CLI) | payer MEDICARE, OTHER ==
[2021-07-21 07:16] LABS: African American GFR (CKD) >90 (>60 ml/min/1.73 sqM); Blood Urea Nitrogen 21 mg/dL (7-17); Non-African American GFR(CKD) >90 (>60 ml/min/1.73 sqM)
--- NOTE | 2021-07-21 08:26 | CT ---
EXAMINATION TYPE: CT brain wo/w con DATE OF EXAM: 07/21/2021 COMPARISON: CT dated 10/04/2009 HISTORY: speech disturbances after head injury CT DLP: 2162.7 mGycm Automated exposure control for dose reduction was used. TECHNIQUE: CT scan of the brain is performed without IV contrast administration. FINDINGS: Questionable bilateral cerebral white matter chronic microvascular ischemic changes. No acute intracr anial hemorrhage. No gross acute cortical infarct. No midline shift, herniation or ventriculectomy. Unremarkable rojas-white matter differentiation, basal cisterns, sella and CP angles. No gross space-o ccupying lesion, vasogenic edema or mass effect. No area of abnormal enhancement, meningeal thickenin g or hyperenhancement. Patent major intracranial vessels. Unremarkable orbits. Left high parietal scalp calcifications. Chasity r visualized paranasal sinuses and mastoid air cells. Unremarkable calvarial bones. IMPRESSION: Questionable mild bilateral cerebral white matter chronic microvascular ischemic changes. No acute in tracranial abnormality, gross space-occupying lesion or abnormal enhancement. Further MRI assessment can be considered if clinically required.
== END | disposition home or self-care (01) ==
LOC: RADCTMAIN 06:32
PROVIDERS: ATTEND Family Medicine
DX: S09.90XD Unspecified injury of head, subsequent encounter (principal); R47.9 Unspecified speech disturbances; X58.XXXD Exposure to other specified factors, subsequent encounter
CPT/HCPCS: 82565; 84520; 70470; 36415; Q9967

== ENCOUNTER → 2021-08-12 | Outpatient (CLI) | payer MEDICARE, OTHER ==
--- NOTE | 2021-08-12 10:35 | MR ---
EXAMINATION TYPE: MR brain wo/w con DATE OF EXAM: 08/12/2021 COMPARISON: CT brain July 21, 2021 HISTORY: Fall injury with concussion. Headache. TECHNIQUE: Multiplanar, multisequence images of the brain and brainstem is performed without and with IV contras t, utilizing 12 mL intravenous Gadavist . FINDINGS: Diffusion weighted images demonstrate no evidence of a recent infarct or other diffusion ab normality. Mild ventricular and sulcal prominence. Small scattered foci of T2 hyperintensity seen thr oughout the white matter bilaterally. T2 Star weighted images show no suspicious intraparenchymal blo od products. Midline structures demonstrate normal morphology. The craniocervical junction appears within normal limits. Post contrast images demonstrate no abnormal enhancement. The dural venous sinuses appear pa tent. The visualized sinuses are clear and the globes are intact. IMPRESSION: Mild diffuse cerebral atrophy and chronic small vessel ischemic change. No suspicious enh ancement or enhancing masses.
== END ==
LOC: RADMRIMAIN 07:21
PROVIDERS: ATTEND Physician Assistant Medical
DX: G31.9 Degenerative disease of nervous system, unspecified (principal); I99.8 Other disorder of circulatory system
CPT/HCPCS: 70553; A9585

== ENCOUNTER 2021-08-16 06:12 | Day surgery (SDC) | payer MEDICARE, OTHER ==
[2021-08-11 11:53] VITALS: BMI 44.2
[~2021-08-16 06:12] MED LIST changes: -GLYCOPYRROLATE 0.2 MG/ML 2 ML VIAL ONE; -KETAMINE 10 MG/ML 20 ML VIAL ONE; +LIDOCAINE 1% (10MG/ML) FOR IV START INTRADERMA PRN; -LIDOCAINE 1% INJ 10MG/ML (20 ML MDV) ONE; -PROPOFOL 10 MG/ML 20 ML VIAL IV ONE
[2021-08-16 07:25] VITALS: TEMP 97.6
[2021-08-16 07:28] LABS: Glucose,Whole Blood 116 mg/dL (75-99)
[2021-08-16] MEDS ORDERED: fentaNYL (PF) 50 MCG/ML 2 ML AMP ONE (07:37)
[2021-08-16] MEDS ORDERED: methylPREDNISolone ACETATE 40 MG/ML 1 ML VIAL ONE (07:37)
[2021-08-16] MEDS ORDERED: ROPIVACAINE 5MG/ML 20ML VIAL ONE (07:37)
[2021-08-16] MEDS ORDERED: MIDAZOLAM 2 MG/2 ML VIAL ONE (07:37)
--- NOTE | 2021-08-16 07:53 | P.PCN ---
Date of Procedure: 08/16/21 Procedure(s) Performed: Procedure= Right sacroiliac joints steroid injection under fluoroscopy guidance (fluoroscopy image stored on file in the radiology Department ) Preoperative diagnosis= 1-sacroiliitis 2-lumbar degenerative disc disease 3- lumbar facet arthropathy 4-Sacroiliac joint dysfunction Postoperative diagnosis=Same as preop Diagnosis . Complication = none Condition= stable Anesthesia= moderate sedation with intravenous Versed 2 mg , and fentanyl 100 micrograms . Indication for the procedure= patient complaining of low back pain , examination was positive for severe tenderness over the sacroiliac joints bilaterally and patient diagnosed with sacroiliitis, for this reason ,she was good candidate for sacroiliac joint steroid injection. Description of the procedure= procedure risk and benefits discussed with the patient, including but not limited, risk of infection and bleeding, and ALLERGIC reaction to the medication and not complete pain relief and patient agreed with the preceding patient taken to the operating room, placed in prone position or standard monitors applied to the patient then after induction of anesthesia back prepped with chlorhexidine 3 times , Then under strict sterile technique, first I did the right sacroiliac joint the which was identified under fluoroscopy guidance been local infiltration of the skin and subcu interstitial with lidocaine 1% then 22-gauge 5 inches long Quincke Needle advanced slowly under fluoroscopy and placed in the right sacroiliac joint needle placement confirmed with AP and oblique and lateral view and after appropriate needle placement confirmed and after negative aspiration, or heme , then Ropivacaine 0.5% 4 mL, and 40 mg of Depo-Medrol mixed together and injected in the right sacroiliac joint after negative aspiration patient tolerated the procedure well without any complication.
[2021-08-16] MEDS ORDERED: IV FLUID CONTINUATION 800 ML IV ONE (08:00)
[2021-08-16 08:29] VITALS: BP 117/57; PULSE 64; RESP 20
--- NOTE | 2021-08-16 08:35 | FL ---
EXAMINATION TYPE: FL guided pain mgmt statistic DATE OF EXAM: 08/16/2021 CLINICAL HISTORY: SI joint pain TECHNIQUE: Fluoroscopy. FINDINGS: Fluoroscopic guidance was provided during the procedure. A total of 6 seconds of fluorosco pic time was utilized during the procedure and 1 spot image was acquired. IMPRESSION: As Above.
== END 2021-08-16 08:30 | disposition home or self-care (01) ==
LOC: ORPAIN 06:12
PROVIDERS: ATTEND Specialist
DX: M47.816 Spondylosis without myelopathy or radiculopathy, lumbar region (principal); M46.1 Sacroiliitis, not elsewhere classified; M53.3 Sacrococcygeal disorders, not elsewhere classified; Z91.09 Other allergy status, other than to drugs and biological substances
CPT/HCPCS: J2250; J1030; J3010; J2795; G0260; 27096; 99152

== ENCOUNTER → 2021-11-04 | Outpatient (CLI) | payer MEDICARE, OTHER | END | disposition home or self-care (01) | LOC: RADCTMAIN 16:47 | PROVIDERS: ATTEND Orthopaedic Surgery Hand Surgery | DX: S52.572A Other intraarticular fracture of lower end of left radius, initial encounter for closed fracture (principal); X58.XXXA Exposure to other specified factors, initial encounter ==

== ENCOUNTER → 2021-11-17 | Outpatient (CLI) | payer MEDICARE, OTHER ==
[2021-11-17 10:11] VITALS: BP 120/80; PULSE 78; RESP 18; TEMP 98.3
--- NOTE | 2021-11-17 14:54 | P.PAINPG ---
Objective - Vital Signs Vital signs: Vital Signs Temp 98.3 F 11/17/21 10:05 Pulse 78 11/17/21 10:05 Resp 18 11/17/21 10:05 BP 120/80 11/17/21 10:05 Pulse Ox 94 L 11/17/21 10:05 FiO2 Intake & Output 11/16/21 11/17/21 11/17/21 18:59 06:59 18:59 Weight 113.398 kg PQRS Measure Charge Sheet Mode of Arrival: Ambulatory Comment: A 61 yr old female with a history of severe and chronic low back pain seconda ry to lumbar degenerative disc diseases and lumbar spondylosis with facet arthropathy presents today for evaluation s/p R SI joint injection. She states she experienced 100% pain relief s/p procedure in the lower R tailbone region. Pain level is currently at 8/10 in intensity, constant, burning/ spasms in character, localized in the lower aspect of her lumbar spine with radiation of pain L & R of midline. Pain is provoked by sitting/standing for periods of 20 min or more. Pain is alleviated with topicals, heat, repositioning and rest. PMH: NIDDM Type II, GERD, Skin Disorder, Hypothyroidism, NAFLD, Hyperlipidemia, Hepatitis A (40 yrs ago), MDD/Anxiety PSH: Hysterectomy, BL Breast Reduction, LapBand, L4-L5 Fusion with Hardware, L RCT Repair, L Foot Tendon Repair, BL Plantar Fasciitis Release FH: Father- Lung CA/ CAD/ HTN. Mother- CAD/CHF/TX. SH: Negative x 3. All: See list Meds: See list Interventional pain procedures completed include R SI joint injection Patient is currently on DENIES Patient denies any side effects of the medication(s), denies excessive drowsiness or sleepiness, denies suicidal ideation and reports that the current pain medication is helping to control the pain and improve activities of daily living. Patient denies any motor or sensory deficits. Patient denies any fever or night sweats, denies any change in the bowel movements or urination. Physical Examination: -Constitutional: Cooperative. Not in acute distress . - Neurologic: Cranial nerve II to XII intact. No focal neurological deficits. - Psychatric: Alert & oriented x 3. Matching mood & appropriate affect. Judgment and insight intact. - Musculoskeletal: Cervical spine: Muscle bulk/ tone/ strength in the bilateral upper extremities normal Vertebral body tenderness to palpation over Spurling test positive Distraction test positive Facet loading test positive Thoracic spine Muscle bulk / tone/ strength in the bilateral paraspinal muscles normal Vertebral body tender to palpation over Facet loading test positive Lumbar spine: Motor bulk/ tone/ strength lower extremities , thigh and legs : 5/5 Deep tendon reflexes : Normal Knee Jerk. Normal Ankle Jerk . Vertebral body tenderness to palpation over Lumbar Facet Loading Test positive Straight Leg Raise: positive at 30 degrees right side/ left side Gaenslen's Test positive Sacral spine : Severe tenderness over the Sacroiliac joint: right side / left side Range of motion: Flexion of the lumbar spine <60 degrees Range of motion: Extension of the lumbar spine <20 degrees Gaenslen's Test positive Johnnie's Test positive Bailey test: positive right side < left side Thigh Thrust Test L>R Sacral Thrust Test L>R Assessment and plan: Chronic low back pain secondary to lumbar degenerative disc disease , lumbar spondylosis with facet arthropathy without myelopathy Recommendation of BL SI joint injection. May need a series, up to every 3 mo as needed, for optimal pain relief. Risks, benefits of procedure discussed and pt verbalized understanding. Denies anticoagulant use or medical history of diabetes. All patient questions answered MAPS reviewed and it was appropriate. I have spent less than 30 minutes on patient care today. Dr Laird was available by phone for the evaluation of this patient. The time was used to review the medical records including relevant urine studies and Prescription history (MAPs), review of the available imaging, evaluation and examination of the patient, coordination of care with the medical staff and if applicable referring physicians, as well as creation of the medical record PQRS Narrative: Smoking Status Never smoker Blood Pressure 120/80 Pain Intensity [Lower Back] 8 Scale Used Numeric (1 - 10) Hx Alcohol Use (MH) No Home Medications: Ambulatory Orders Aspirin 81 mg PO DAILY 08/04/15 Cholecalciferol [Vitamin D3] 4,000 unit PO DAILY 08/04/15 Esomeprazole Magnesium [NexIUM] 40 mg PO DAILY 08/04/15 FLUoxetine HCL [PROzac] 80 mg PO QAM 08/04/15 Levothyroxine Sodium [Synthroid] 112 mcg PO QAM 08/04/15 Multivitamins, Thera [Multivitamin] 1 tab PO DAILY 08/04/15 QUEtiapine [SEROquel] 400 mg PO HS 08/04/15 clonazePAM [KlonoPIN] 1 mg PO TID 08/04/15 Rosuvastatin [Crestor] 20 mg PO HS 08/29/18 Cyanocobalamin [Vitamin B-12 Injection] 1,000 mcg SQ Q42D 08/11/21 Semaglutide [Ozempic] 1 mg SQ WE 08/11/21 Vitamin C/Biotin [Hair, Skin and Nails Chew] 2 tab PO DAILY 08/11/21 busPIRone HCl [Buspar] 20 mg PO TID 08/11/21 Controlled Substance Measures - Controlled Substance Measures Is patient prescribed a controlled substance at discharge?: No
== END ==
LOC: PNWHC3 09:21
PROVIDERS: ATTEND Specialist
DX: M51.36 Other intervertebral disc degeneration, lumbar region (principal); M47.816 Spondylosis without myelopathy or radiculopathy, lumbar region; G89.29 Other chronic pain; E11.9 Type 2 diabetes mellitus without complications; E03.9 Hypothyroidism, unspecified; E78.5 Hyperlipidemia, unspecified; F41.9 Anxiety disorder, unspecified
CPT/HCPCS: 99211

== ENCOUNTER 2021-12-06 12:56 | Day surgery (SDC) | payer MEDICARE, OTHER ==
[2021-12-06 14:07] VITALS: TEMP 97.5
[2021-12-06] MEDS ORDERED: IV FLUID CONTINUATION 1,000 ML IV ONE (14:12)
[2021-12-06] MEDS ORDERED: fentaNYL (PF) 50 MCG/ML 2 ML AMP ONE (14:12)
[2021-12-06] MEDS ORDERED: ROPIVACAINE 5 MG/ML 20 ML AMPULE ONE (14:12)
[2021-12-06] MEDS ORDERED: methylPREDNISolone ACETATE 40 MG/ML 1 ML VIAL ONE (14:12)
[2021-12-06] MEDS ORDERED: MIDAZOLAM 2 MG/2 ML VIAL ONE (14:12)
[2021-12-06 14:13] LABS: Glucose,Whole Blood 152 mg/dL (70-110)
--- NOTE | 2021-12-06 14:30 | P.PCN ---
Date of Procedure: 12/06/21 Procedure(s) Performed: Procedure= Bilateral sacroiliac joints steroid injection under fluoroscopy guidance (fluoroscopy image stored on file in the radiology Department ) Preoperative diagnosis= 1-sacroiliitis 2-lumbar degenerative disc disease 3- lumbar facet arthropathy 4-Sacroiliac joint dysfunction Postoperative diagnosis=Same as preop Diagnosis . Complication = none Condition= stable Anesthesia= moderate sedation with intravenous Versed 1 mg , and fentanyl 50 micrograms . Indication for the procedure= patient complaining of low back pain , examination was positive for severe tenderness over the sacroiliac joints bilaterally and patient diagnosed with sacroiliitis, for this reason ,she was good candidate for Bilateral sacroiliac joint steroid injection. Description of the procedure= procedure risk and benefits discussed with the patient, including but not limited, risk of infection and bleeding, and ALLERGIC reaction to the medication and not complete pain relief and patient agreed with the preceding patient taken to the operating room, placed in prone position or standard monitors applied to the patient then after induction of anesthesia back prepped with chlorhexidine 3 times , Then under strict sterile technique, first I did the right sacroiliac joint the which was identified under fluoroscopy guidance been local infiltration of the skin and subcu interstitial with lidocaine 1% then 22-gauge 5 inches long Quincke Needle advanced slowly under fluoroscopy and placed in the right sacroiliac joint needle placement confirmed with AP and oblique and lateral view and after appropriate needle placement confirmed and after negative aspiration, or heme , then Ropivacaine 0.5% 4 mL, and 20 mg of Depo-Medrol mixed together and injected in the right sacroiliac joint after negative aspiration , then after that the exact same procedure was repeated for the left side and the left side sacroiliac joint steroid injection under fluoroscopy guidance, patient tolerated the procedure well without any complications and she will follow up in the pain clinic when necessary , patient's already had an appointment with Dr. Bear for evaluation .
[2021-12-06] MEDS ORDERED: LACTATED RINGERS 1,000 ML IV ONE (14:34)
[2021-12-06 14:38] VITALS: RESP 18
[2021-12-06 14:54] VITALS: BP 126/76; PULSE 69
--- NOTE | 2021-12-06 15:39 | FL ---
Fluoroscopy HISTORY: Pain 20 seconds fluoroscopy time supplied to the referring clinician. 2 intraoperative C-arm images docum ent the procedure. See dictated report from anesthesia.
== END 2021-12-06 15:07 | disposition home or self-care (01) ==
LOC: ORPAIN 12:56
PROVIDERS: ATTEND Specialist
DX: M46.1 Sacroiliitis, not elsewhere classified (principal); M47.816 Spondylosis without myelopathy or radiculopathy, lumbar region; M51.36 Other intervertebral disc degeneration, lumbar region; E66.01 Morbid (severe) obesity due to excess calories; Z68.42 Body mass index [BMI] 45.0-49.9, adult; Z88.5 Allergy status to narcotic agent; Z91.040 Latex allergy status; Z91.09 Other allergy status, other than to drugs and biological substances; Z79.82 Long term (current) use of aspirin; Z79.899 Other long term (current) drug therapy; Z79.84 Long term (current) use of oral hypoglycemic drugs; Z79.890 Hormone replacement therapy; Z79.1 Long term (current) use of non-steroidal anti-inflammatories (NSAID)
CPT/HCPCS: J2250; J1030; J3010; J2795; G0260

== ENCOUNTER → 2022-06-07 | Outpatient (CLI) | payer MEDICARE, OTHER ==
--- NOTE | 2022-06-08 17:33 | MM ---
Reason for Exam: Screening (asymptomatic). Last mammogram was performed 1 year(s) and 2 month(s) ago. Patient History: Menarche at age 10. Patient has no children. Left ovary removed at age 39. Hysterectomy at age 39. Postmenopausal. Endometrial cancer, age 39. Hormonal Contraceptives for 6 months. 07/2005, Reduction. Risk Values: Chelsie 5 year model risk: 1.8%. NCI Lifetime model risk: 7.2%. Prior Study Comparison: 02/13/2018 Bilateral Diagnostic Mammogram, [facility]. 04/13/2020 Bilateral Screening Mammogram, [facility]. 04/15/2021 Bilateral Screening Mammogram, [facility]. Tissue Density: There are scattered fibroglandular densities. Findings: Analyzed By CAD. Pattern appears symmetrical and stable. No significant interval change. No suspicious groups of microcalcifications, spiculated or lobular masses, architectural distortion or other secondary signs of malignancy are mammographically apparent. Overall Assessment: Negative, BI-RAD 1 Management: Screening Mammogram of both breasts in 1 year. A negative mammogram report should not preclude additional follow up of suspicious palpable abnormalities. Patient should continue monthly self breast exam. A clinical breast exam by your physician is recommended on an annual basis and results should be correlated with mammographic findings. Electronically signed and approved by: Bret Strickland D.O. Radiologis
== END | disposition home or self-care (01) ==
LOC: RADMAMWWP 14:59
PROVIDERS: ATTEND Family Medicine
DX: Z12.31 Encounter for screening mammogram for malignant neoplasm of breast (principal); Z78.0 Asymptomatic menopausal state
CPT/HCPCS: 77063; 77067

== ENCOUNTER → 2022-08-08 | Outpatient (CLI) | payer MEDICARE, OTHER ==
--- NOTE | 2022-08-09 07:34 | US ---
EXAMINATION TYPE: US transvaginal DATE OF EXAM: 08/08/2022 COMPARISON: NONE CLINICAL HISTORY: R10.2 PELVIC AND PERINEAL PAIN. pain partial hysterectomy rt ovary left. TECHNIQUE: Transvaginal (TV). EXAM MEASUREMENTS: Uterus: Surgically absent cm Endometrial Stripe: Surgically absent cm Left Ovary: Surgically absent cm 1. Uterus: Surgically absent 2. Endometrium: Surgically absent 3. Right Ovary: Obscured by overlying bowel gas 4. Left Ovary: Surgically absent 5. Bilateral Adnexa: wnl 6. Posterior cul-de-sac: wnl IMPRESSION: Postoperative pelvis
== END | disposition home or self-care (01) ==
LOC: RADUSWWP 15:58
PROVIDERS: ATTEND Family Medicine
DX: R10.2 Pelvic and perineal pain (principal); Z78.0 Asymptomatic menopausal state; Z98.890 Other specified postprocedural states
CPT/HCPCS: 76830

== ENCOUNTER → 2022-08-10 | Outpatient (CLI) | payer MEDICARE, OTHER ==
--- NOTE | 2022-08-11 07:43 | BD ---
EXAMINATION TYPE: Axial Bone Density DATE OF EXAM: 08/10/2022 CLINICAL HISTORY: 62 years old Female. ICD-10 CODE: Z78.0 POST MENOPAUSAL WITHOUT HRT Height: 62 Weight: 256.6 FRAX RISK QUESTIONS: Alcohol (3 or more units per day): no Family History (Parent hip fracture): no Glucocorticoids (More than 3mos): no History of Fracture in Adulthood: wrist Secondary Osteoporosis: 1. Type 1 Diabetes: no 2. Hyperthyroidism: no 3. Menopause before 45: no 4. Malnutrition: no 5. Chronic liver disease: fatty liver Rheumatoid Arthritis: no Current Tobacco Use: no RISK FACTORS HISTORY OF: Hip Fracture (Right/Left): no When: Spine Fracture: no When: History of Wrist Fracture: Lt wrist x2 When: age 6 and age 61 Surgery to Spine/Hip(right/left)/Wrist (right/left): lL4-5 fusion with a cage When: age 50 Family History of Osteoporosis: Mother, Sister, Maternal Grandmother Active: no Diet low in dairy products/other sources of calcium: yes Postmenopausal woman: yes Take estrogen and/or progesterone medications: no Lost more than 2 inches in height since high school: no Frequent falls: yes Poor Health: no Hyperparathyroidism: no Adrenal Insufficiency: no MEDICATIONS: Prednisone or other steroids: no Thyroid Medications: Synthroid How Long: past 23 years Osteoporosis Medications:no Additional Medications: nexium, priozac, crestor, vit., vit d, Additional History: EXAM MEASUREMENTS: Bone mineral density about the R hip (g/cm2): 0.986 Bone mineral density about the L hip (g/cm2): 1.065 T Score values are as follows: -----R Neck: -1.3 -----L Neck: -1.2 -----R Total: -0.2 -----L Total: 0.5 Z Score values are as follows: -----R Neck: -0.6 -----L Neck: -0.5 -----R Total: 0.2 -----L Total: 0.8 Bone mineral density has: decreased -5.4% % since study of: 04/13/2020 FRAX%s: The graph provided illustrates a 11.6% chance for a major osteoporotic fx and a 0.9% chance f or the hips probability for fx in 10 years time. IMPRESSION: Normal (Values between +1 and -1 indicate normal bone mass). Consider repeating this study in 5 year s or sooner if there is some new clinical indication. NOTE: T-SCORE=SD OF THE YOUNG ADULT MEAN.
== END | disposition home or self-care (01) ==
LOC: RADBDWWP 16:02
PROVIDERS: ATTEND Internal Medicine Rheumatology
DX: M85.89 Other specified disorders of bone density and structure, multiple sites (principal); L81.9 Disorder of pigmentation, unspecified; M31.0 Hypersensitivity angiitis; R74.01 Elevation of levels of liver transaminase levels; Z78.0 Asymptomatic menopausal state
CPT/HCPCS: 77080

== ENCOUNTER 2022-10-03 09:14 | Day surgery (SDC) | payer MEDICARE, OTHER ==
[2022-09-29 16:00] VITALS: BMI 45.0
[2022-10-03] MEDS ORDERED: LACTATED RINGERS 1,000 ML IV SCH (09:36)
[2022-10-03] MEDS ORDERED: LIDOCAINE 1% (10MG/ML) FOR IV START INTRADERMA PRN (09:36)
[2022-10-03 09:54] VITALS: RESP 16; TEMP 97.8
[2022-10-03 09:54] LABS: Glucose,Whole Blood 122 mg/dL (70-110)
[2022-10-03] MEDS ORDERED: methylPREDNISolone ACETATE 40 MG/ML 1 ML VIAL ONE (10:18)
[2022-10-03] MEDS ORDERED: MIDAZOLAM 2 MG/2 ML VIAL ONE (10:18)
[2022-10-03] MEDS ORDERED: fentaNYL (PF) 50 MCG/ML 2 ML AMP ONE (10:18)
[2022-10-03] MEDS ORDERED: IOPAMIDOL M200 10 ML VIAL ONE (10:18)
--- NOTE | 2022-10-03 10:31 | P.PCN ---
Date of Procedure: 10/03/22 Procedure(s) Performed: PREOP DIAGNOSIS: 1- Lumbar postlaminectomy syndrome. POSTOP DIAGNOSIS:1- Lumbar postlaminectomy syndrome. PROCEDURE: 1-Caudal epidural steroid injection with epidurolysis and epidurogram under fluoroscopic guidance. (Fluoroscopy images available in the radiology Department ) 2-caudal epidurogram. ANESTHESIA: moderate sedation, with Versed 2 mg and fentanyl 100 g. Sedation start time : 1018 . Sedation stop time :1028 EBL: Minimal. PROCEDURE INDICATION: The patient with post-laminectomy syndrome with low back pain and radiculopathy radiating down in both legs, here for a caudal epidural steroid injection with epidurolysis. PROCEDURE DESCRIPTION: The patient was seen and identified in the preoperative area. Risks, benefits, complications, and alternatives were discussed with the patient. The patient agreed to proceed with the procedure and signed the consent. IV was started, and vital signs were stable. Patient was taken to the OR and time out was completed. The patient was placed in the prone position on procedure table and a pillow was placed under the abdomen to reduce lumbar lordosis. The lumbosacral area was prepped and draped in the usual sterile fashion. Vital signs were closely monitored during the procedure. lateral view and the anterior-posterior plates of the sacrum were identified with infiltration of the area overlying the sacral hiatus with 1% lidocaine .A 17 gauge RK epidural needle was used to advance through the sacral hiatus into the caudal epidural space. Omnipaque 180 dye. 2cc was injected and the position of the needle was verified to be in the midline. A Racz catheter was introduced into the epidural space and was advanced towards the L5-S1 interspace under direct fluoroscopic guidance. Multiple passes were made with the catheter for lysis of epidural adhesions. Depo-Medrol 40 mg ( preservative-free ) with 3ml of preservative free Lidocaine 1% and 5 ml of preservative free normal saline was injected slowly. Additional spread was seen to L4 under fluoroscopy. The needle and the catheter were withdrawn intact. EPIDUROGRAM: Omnipaque 180 mg dye 2 ml was injected with spread of the dye into the caudal epidural space and with spread cutoff at L5 prior to epidurolysis. Post epidurolysis dye 2 ml was injected and spread was seen to L4-5 .There was further spread of the solution together with the dye above the L4 COMPLICATIONS: None. DISPOSITION / PLANS: The patient was placed in a supine position and transferred to the recovery area in a stable condition for observation and was discharged from the recovery room after meeting discharge criteria. Home discharge instructions given to the patient by the staff. The patient was reexamined prior to discharge. The patient will schedule a follow up in the clinic in 2-4 weeks.
[2022-10-03] MEDS ORDERED: IV FLUID CONTINUATION 1,000 ML IV ONE (10:35)
[2022-10-03 10:41] VITALS: PULSE 72
[2022-10-03 10:56] VITALS: BP 130/77
--- NOTE | 2022-10-03 11:04 | FL ---
EXAMINATION TYPE: FL guided pain mgmt statistic DATE OF EXAM: 10/03/2022 HISTORY: Fluoroscopy time Total dose area product (DAP) in mGy*m? (or similar): 0.01499 IMPRESSION: 1. Fluoroscopy time.
== END 2022-10-03 11:01 | disposition home or self-care (01) ==
LOC: ORPAIN 09:14
PROVIDERS: ATTEND Specialist
DX: M96.1 Postlaminectomy syndrome, not elsewhere classified (principal); M54.10 Radiculopathy, site unspecified; Z88.8 Allergy status to other drugs, medicaments and biological substances; Z91.048 Other nonmedicinal substance allergy status; Z91.040 Latex allergy status
CPT/HCPCS: 62264; 99152; J2250; J1030; J3010; Q9966; C1894

== ENCOUNTER → 2022-10-25 | Outpatient (CLI) | payer MEDICARE, OTHER ==
[2022-10-25 15:01] VITALS: BP 122/75; PULSE 74; RESP 18; TEMP 97.9
--- NOTE | 2022-10-25 15:49 | P.PAINPG ---
PQRS Measure Charge Sheet Comment: A 62 yr old female with a history of severe and chronic LBP since 2009 secondary to post laminectomy syndrome presents today for evaluation s/p Caudal HERIBERTO w lysis. Pt states she experienced 25 % pain relief x 3 wks s/p procedure. Pain level is provoked at 9 /10 in intensity, constant, localized in the lumbar spine, burning in character w shooting towards the BL groin and BL thighs. Pain is provoked by over activity. Pain is alleviated with PT was ineffective in treating pain, massage therapy in Aug 2022 but she couldn't get off the bed after a session, heat & ice are ineffective, medications, topicals, repositioning and rest. Interventional pain procedures completed include Caudal HERIBERTO w Lysis, BL SI Patient is currently on Tyl ES, Voltaren gel Patient denies any side effects of the medication(s), denies excessive drowsiness or sleepiness, denies suicidal ideation and reports that the current pain medication is helping to control the pain and improve activities of daily living. Patient denies any motor or sensory deficits. Patient denies any fever or night sweats, denies any change in the bowel movements or urination. Physical Examination: -Constitutional: Cooperative. Not in acute distress . - Neurologic: Cranial nerve II to XII intact. No focal neurological deficits. - Psychatric: Alert & oriented x 3. Matching mood & appropriate affect. Judgment and insight intact. - Musculoskeletal: Cervical spine: Muscle bulk/ tone/ strength in the bilateral upper extremities normal Vertebral body tenderness to palpation over Spurling test positive Distraction test positive Facet loading test positive TTP Thoracic spine Muscle bulk / tone/ strength in the bilateral paraspinal muscles normal Vertebral body tender to palpation over Facet loading test positive TTP Lumbar spine: Motor bulk/ tone/ strength lower extremities , thigh and legs : 5/5 Deep tendon reflexes : Normal Knee Jerk. Normal Ankle Jerk . Vertebral body tenderness to palpation over Batista Test positive Lumbar Facet Loading Test positive Straight Leg Raise: positive at 30 degrees right side/ left side Gaenslen's Test positive Sacral spine : Severe tenderness over the Sacroiliac joint: right side / left side Range of motion: Flexion of the lumbar spine <60 degrees Range of motion: Extension of the lumbar spine <20 degrees Gaenslen's Test positive right side / left side Bailey test: positive right side / left side Thigh Thrust Test positive right side / left side Sacral Thrust Test positive right side / left side Assessment and plan: Chronic LBP secondary to post laminectomy syndrome Recommendation of BL SI injection. May need a series for optimal pain relief. Risks, benefits of procedure discussed and pt verbalized understanding. Admits to anticoagulant use or medical history of diabetes. Protocol for discontinuation/ continuation of medications bryanna procedure discussed. Minimal anesthesia provided, if clinically indicated, consisting of Versed and Fentanyl. All questions answered. I have spent less than 30 minutes on patient care today. Dr Laird was available by phone for the evaluation of this patient. The time was used to review the medical records including relevant urine studies and Prescription history (MAPs), review of the available imaging, evaluation and examination of the patient, coordination of care with the medical staff and if applicable referring physicians, as well as creation of the medical record PQRS Narrative: Smoking Status Never smoker Hx Alcohol Use (MH) No Home Medications: Ambulatory Orders Cholecalciferol [Vitamin D3] 1,000 unit PO TID 08/04/15 Esomeprazole Magnesium [NexIUM] 40 mg PO DAILY 08/04/15 FLUoxetine HCL [PROzac] 80 mg PO QAM 08/04/15 QUEtiapine [SEROquel] 400 mg PO HS 08/04/15 clonazePAM [KlonoPIN] 1 mg PO TID 08/04/15 Rosuvastatin [Crestor] 20 mg PO HS 08/29/18 Semaglutide [Ozempic] 1 mg SQ Q7D 08/11/21 busPIRone HCl [Buspar] 20 mg PO TID 08/11/21 cycloSPORINE 0.05% OPHTH SOLN [Restasis] 1 applicator BOTH EYES Q12H 12/06/21 Levothyroxine Sodium [Synthroid] 100 mcg PO DAILY 07/07/22 Biotin [Zbhr-Kbnl-Zogcd] 10,000 mcg PO DAILY 09/29/22 Cider Vinegar [Apple Cider Vinegar] 300 mg PO DAILY 09/29/22 Multivitamins, Thera [Multivitamin (formulary)] 1 tab PO DAILY 09/29/22 Controlled Substance Measures - Controlled Substance Measures Is patient prescribed a controlled substance at discharge?: No
== END ==
LOC: PNWHC3 14:05
PROVIDERS: ATTEND Specialist
DX: M96.1 Postlaminectomy syndrome, not elsewhere classified (principal); G89.29 Other chronic pain; Z91.048 Other nonmedicinal substance allergy status; Z91.040 Latex allergy status; Z88.5 Allergy status to narcotic agent; Z88.8 Allergy status to other drugs, medicaments and biological substances
CPT/HCPCS: 99211

== ENCOUNTER → 2022-11-07 | Outpatient (CLI) | payer MEDICARE, OTHER ==
[2022-11-07 16:51] LABS: Albumin 4.4 g/dL (3.5-5.0); Albumin/Globulin Ratio 1.7; Bilirubin,Unconjugated 1.1 mg/dL (0.0-1.1); Globulin 2.6 g/dL; Total Bilirubin 1.3 mg/dL (0.2-1.3)
== END | disposition home or self-care (01) ==
LOC: LABWHC1 15:36
PROVIDERS: ATTEND Internal Medicine Gastroenterology
DX: K76.0 Fatty (change of) liver, not elsewhere classified (principal); R74.01 Elevation of levels of liver transaminase levels; R19.4 Change in bowel habit; R14.1 Gas pain
CPT/HCPCS: 36415; 80076

== ENCOUNTER 2022-11-16 13:09 | Day surgery (SDC) | payer MEDICARE, OTHER ==
[2022-11-16 13:39] LABS: Glucose,Whole Blood 107 mg/dL (70-110)
[2022-11-16 13:41] VITALS: TEMP 97.1
[2022-11-16] MEDS ORDERED: IOPAMIDOL M200 10 ML VIAL ONE (13:50)
[2022-11-16] MEDS ORDERED: methylPREDNISolone ACETATE 40 MG/ML 1 ML VIAL ONE (13:50)
[2022-11-16] MEDS ORDERED: ROPIVACAINE 5 MG/ML 20 ML AMPULE ONE (13:50)
--- NOTE | 2022-11-16 14:00 | P.PCN ---
Date of Procedure: 11/16/22 Procedure(s) Performed: Procedure= Bilateral sacroiliac joints steroid injection under fluoroscopy guidance (fluoroscopy image stored on file in the radiology Department ) Preoperative diagnosis= 1-sacroiliitis 2-lumbar degenerative disc disease 3- lumbar facet arthropathy 4-Sacroiliac joint dysfunction Postoperative diagnosis=Same as preop Diagnosis . Complication = none Condition= stable Anesthesia= ropivacaine 0.5% 4 mL for skin and subcu infiltration Indication for the procedure= patient complaining of low back pain , examination was positive for severe tenderness over the sacroiliac joints bilaterally and patient diagnosed with sacroiliitis, for this reason ,she was good candidate for Bilateral sacroiliac joint steroid injection. Description of the procedure= procedure risk and benefits discussed with the patient, including but not limited, risk of infection and bleeding, and ALLERGIC reaction to the medication and not complete pain relief and patient agreed with the preceding patient taken to the operating room, placed in prone position or standard monitors applied to the patient then after induction of anesthesia back prepped with chlorhexidine 3 times , Then under strict sterile technique, first I did the right sacroiliac joint the which was identified under fluoroscopy guidance been local infiltration of the skin and subcu interstitial with lidocaine 1% then 22-gauge 5 inches long Quincke Needle advanced slowly under fluoroscopy and placed in the right sacroiliac joint needle placement confirmed with AP and oblique and lateral view and after appropriate needle placement confirmed and after negative aspiration, or heme , then Ropivacaine 0.5% 3 mL, and 20 mg of Depo-Medrol mixed together and injected in the right sacroiliac joint after negative aspiration , then after that the exact same procedure was repeated for the left side ,and the left side sacroiliac joint steroid injection under fluoroscopy guidance, patient tolerated the procedure well without any complications and she will follow up in the pain clinic when necessary , patient's already had an appointment with Dr. Bear for evaluation .
[2022-11-16 14:09] VITALS: BP 129/73; PULSE 86; RESP 17
--- NOTE | 2022-11-16 14:20 | FL ---
Intraoperative/procedural fluoroscopic services were provided for bilateral SI joint injection. Total fluoroscopy time is 8.2 seconds with a total of 4 submitted images to PACS. Total DAP 0.64629 mGym2. Please see the operative note for further details.
== END 2022-11-16 14:27 | disposition home or self-care (01) ==
LOC: ORPAIN 13:09
PROVIDERS: ATTEND Specialist
DX: M46.1 Sacroiliitis, not elsewhere classified (principal); M51.36 Other intervertebral disc degeneration, lumbar region; M47.816 Spondylosis without myelopathy or radiculopathy, lumbar region; Z88.8 Allergy status to other drugs, medicaments and biological substances; Z79.82 Long term (current) use of aspirin; Z79.899 Other long term (current) drug therapy
CPT/HCPCS: J1030; Q9966; J2795; G0260

== ENCOUNTER → 2022-12-13 | Outpatient (CLI) | payer MEDICARE, OTHER ==
[2022-12-13 20:13] LABS: ALT 58 U/L (8-44); AST 34 U/L (13-35); Blood Urea Nitrogen 14.4 mg/dL (9.0-27.0); C Reactive Protein <0.30 mg/dL (0.00-0.80)
[2022-12-13 22:24] LABS: Basophils # (A) 0.04 X 10*3/uL (0.00-0.10); Basophils % (A) 0.6 %; Eosinophils # (A) 0.15 X 10*3/uL (0.04-0.35); Eosinophils % (A) 2.3 %; HCT 45.3 % (37.2-46.3); HGB 14.8 d/dL (12.0-15.0); Lymphocytes # (A) 2.35 X 10*3/uL (0.90-5.00); Lymphocytes % (A) 36.5 %; MCH 29.5 pg (27.0-32.0); MCHC 32.7 d/dL (32.0-37.0); MCV 90.4 FL (80.0-97.0); Monocytes # (A) 0.58 X 10*3/uL (0.20-1.00); NRBC Per 100 WBC 0 X 10*3/uL (0.00-0.01); Neutrophils % (A) 51.4 %; Platelet Count 208 X 10*3/uL (140-440); RBC 5.01 X 10*6/uL (4.10-5.20); RDW 13.3 % (11.5-14.5); WBC 6.43 X 10*3/uL (4.50-10.00)
[2022-12-13 23:36] LABS: Erythrocyte Sedimentation Rate 4 mm/Hr (0-30)
== END | disposition home or self-care (01) ==
LOC: LABWHC1 14:18
PROVIDERS: ATTEND Internal Medicine Rheumatology
DX: L81.9 Disorder of pigmentation, unspecified (principal); R74.01 Elevation of levels of liver transaminase levels; E16.2 Hypoglycemia, unspecified; Z78.0 Asymptomatic menopausal state
CPT/HCPCS: 36415; 82955; 83036; 84450; 84460; 84520; 85025; 85652; 86140

== ENCOUNTER → 2023-02-23 | Outpatient (CLI) | payer MEDICARE, OTHER ==
--- NOTE | 2023-02-23 12:12 | MR ---
EXAMINATION TYPE: MR lumbar spine wo con DATE OF EXAM: 02/23/2023 12:06 PM COMPARISON: 06/20/2021 HISTORY: Chronic LBP, BLE radiculopathy. Surgery x 2. Prior MR on pacs. Multiplanar, MultiSpin echo imaging of the lumbar spine was performed. L1-L2: Normal disc appearance without desiccation. No herniation, protrusion or disc bulging. No ca nal stenosis is present. Foramina are patent bilaterally. L2-L3: Normal disc appearance without desiccation. No herniation, protrusion or disc bulging. No ca nal stenosis is present. Foramina are patent bilaterally. L3-L4: Normal disc appearance without desiccation. No herniation, protrusion or disc bulging. No ca nal stenosis is present. Foramina are patent bilaterally. L4-L5: Decompressive laminectomy change. Pedicular screws are in place. Intervertebral body spacer no carloz. Modic type I changes. No evidence for recurrent process. Foramina are patent. Postoperative alig nment within normal limits. L5-S1: Normal disc appearance without desiccation. No herniation, protrusion or disc bulging. No ca nal stenosis is present. Foramina are patent bilaterally. Lumbar segments are intact. No paraspinal masses are identified. Conus medullaris has a normal appe arance. IMPRESSION: 1. Postoperative changes at L4-5 as discussed. No evidence for recurrent process. Normal postoperativ e alignment.
== END | disposition home or self-care (01) ==
LOC: RADMRIMAIN 10:50
PROVIDERS: ATTEND Orthopaedic Surgery
DX: M54.50 Low back pain, unspecified (principal); Z98.890 Other specified postprocedural states
CPT/HCPCS: 72148

== ENCOUNTER → 2023-03-31 | Outpatient (CLI) | payer MEDICARE, OTHER ==
[2023-03-31 22:59] LABS: Basophils # (A) 0.04 X 10*3/uL (0.00-0.10); Basophils % (A) 0.7 %; Eosinophils # (A) 0.59 X 10*3/uL (0.04-0.35); HCT 45.5 % (37.2-46.3); HGB 14.3 g/dL (12.0-15.0); Lymphocytes # (A) 1.56 X 10*3/uL (0.90-5.00); Lymphocytes % (A) 26.4 %; MCH 29.1 pg (27.0-32.0); MCHC 31.4 g/dL (32.0-37.0); MCV 92.5 FL (80.0-97.0); Mean Platelet Volume 11.1 FL (9.5-12.2); Monocytes % (A) 8.4 %; NRBC Per 100 WBC 0 X 10*3/uL (0.00-0.01); Neutrophils # (A) 3.22 X 10*3/uL (1.80-7.70); Neutrophils % (A) 54.3 %; Platelet Count 197 X 10*3/uL (140-440); RBC 4.92 X 10*6/uL (4.10-5.20); RDW 13.4 % (11.5-14.5); WBC 5.92 X 10*3/uL (4.50-10.00)
[2023-03-31 23:40] LABS: ALT 60 U/L (8-44); AST 42 U/L (13-35); Albumin 4.6 g/dL (3.8-4.9); Alkaline Phosphatase 67 U/L (41-126); BUN/Creat Ratio 19.43 Ratio (12.00-20.00); Blood Urea Nitrogen 13.6 mg/dL (9.0-27.0); Calcium 9.8 mg/dL (8.7-10.3); Carbon Dioxide 29.4 mmol/L (21.6-31.8); Chloride 102 mmol/L (96-109); Chol/HDL Ratio 2.18 Ratio; Glucose 124 mg/dL (70-110); LDL Cholesterol,Calculated 39.5 mg/dL (0.0-131.0); Potassium 4.4 mmol/L (3.5-5.5); Sodium 142 mmol/L (135-145); Total Bilirubin 1.1 mg/dL (0.3-1.2); Total Protein 6.6 g/dL (6.2-8.2); VLDL Calculation 14.62 mg/dL (5.00-40.00)
== END | disposition home or self-care (01) ==
LOC: LABWHC1 10:00
PROVIDERS: ATTEND Family Medicine
DX: E03.9 Hypothyroidism, unspecified (principal); E11.9 Type 2 diabetes mellitus without complications; E78.5 Hyperlipidemia, unspecified; K21.9 Gastro-esophageal reflux disease without esophagitis
CPT/HCPCS: 36415; 80053; 80061; 84443; 85025

== ENCOUNTER → 2023-08-01 | Outpatient (CLI) | payer MEDICARE, OTHER ==
--- NOTE | 2023-08-05 23:58 | MM ---
Reason for Exam: Screening (asymptomatic). Last mammogram was performed 1 year(s) and 2 month(s) ago. Patient History: Menarche at age 10. Patient has no children. Left ovary removed at age 39. Hysterectomy at age 39. Postmenopausal. Endometrial cancer, age 39. Hormonal Contraceptives for 6 months. 07/2005, Reduction. Risk Values: Chelsie 5 year model risk: 1.8%. NCI Lifetime model risk: 6.9%. Prior Study Comparison: 04/13/2020 Bilateral Screening Mammogram, [facility]. 04/15/2021 Bilateral Screening Mammogram, [facility]. 06/07/2022 Bilateral MG 3D screening mammo w/cad, [facility]. Tissue Density: There are scattered areas of fibroglandular density. Findings: Analyzed By CAD. There is no suspicious group of microcalcifications or new suspicious mass in either breast. Overall Assessment: Negative, BI-RAD 1 Management: Screening Mammogram of both breasts in 1 year. . Patient should continue monthly self-breast exams. A clinical breast exam by your physician is recommended on an annual basis. This exam should not preclude additional follow-up of suspicious palpable abnormalities. Note on Chelsie scores and lifetime risk: 1. A Chelsie score greater than 3% is considered moderate risk. If this is the case, consider specialist referral to assess eligibility for a risk reducing agent. 2. If overall lifetime risk for the development of breast cancer is 20% or higher, the patient may qualify for future screening with alternating mammogram and breast MRI. Electronically signed and approved by: Ben Miller M.D. Radiologist
== END | disposition home or self-care (01) ==
LOC: RADMAMWWP 13:01
PROVIDERS: ATTEND Family Medicine
DX: Z12.31 Encounter for screening mammogram for malignant neoplasm of breast (principal); Z78.0 Asymptomatic menopausal state
CPT/HCPCS: 77063; 77067

== ENCOUNTER → 2024-03-28 | Outpatient (CLI) | payer MEDICARE, OTHER ==
[2024-03-28 15:14] LABS: Basophils # (A) 0.03 X 10*3/uL (0.00-0.10); Basophils % (A) 0.5 %; Eosinophils # (A) 0.16 X 10*3/uL (0.04-0.35); Eosinophils % (A) 2.8 %; HCT 43.6 % (37.2-46.3); HGB 14.3 g/dL (12.0-15.0); Lymphocytes # (A) 1.99 X 10*3/uL (0.90-5.00); Lymphocytes % (A) 34.5 %; MCH 29.6 pg (27.0-32.0); MCHC 32.8 g/dL (32.0-37.0); MCV 90.3 FL (80.0-97.0); Mean Platelet Volume 11.1 FL (9.5-12.2); Monocytes % (A) 8.7 %; NRBC Per 100 WBC 0 X 10*3/uL (0.00-0.01); Neutrophils # (A) 3.08 X 10*3/uL (1.80-7.70); Neutrophils % (A) 53.3 %; Platelet Count 192 X 10*3/uL (140-440); RBC 4.83 X 10*6/uL (4.10-5.20); RDW 13.2 % (11.5-14.5); WBC 5.77 X 10*3/uL (4.50-10.00)
[2024-03-28 15:41] LABS: Chol/HDL Ratio 2.38 Ratio; VLDL Calculation 19.66 mg/dL (5.00-40.00)
[2024-03-28 15:42] LABS: % Iron Saturation 22.68 (12.00-45.00); ALT 45 U/L (8-44); AST 31 U/L (13-35); Albumin 4.4 g/dL (3.8-4.9); Alkaline Phosphatase 66 U/L (41-126); BUN/Creat Ratio 16.57 Ratio (12.00-20.00); Blood Urea Nitrogen 11.6 mg/dL (9.0-27.0); Calcium 9.4 mg/dL (8.7-10.3); Carbon Dioxide 27.7 mmol/L (21.6-31.8); Chloride 103 mmol/L (96-109); Ferritin 90.5 ng/mL (10.0-291.0); Globulin 2.1 g/dL (1.6-3.3); Glucose 139 mg/dL (70-110); Iron 93 UG/DL (50-170); LDL Cholesterol,Calculated 53.9 mg/dL (0.0-131.0); Potassium 4.5 mmol/L (3.5-5.5); Sodium 142 mmol/L (135-145); Total Bilirubin 1.2 mg/dL (0.3-1.2); Total Iron Binding Capacity 410 UG/DL (228-460); Total Protein 6.5 g/dL (6.2-8.2)
== END | disposition home or self-care (01) ==
LOC: LABWHC1 09:39
PROVIDERS: ATTEND Internal Medicine Gastroenterology
DX: Z13.21 Encounter for screening for nutritional disorder (principal); Z13.228 Encounter for screening for other metabolic disorders; Z13.29 Encounter for screening for other suspected endocrine disorder; D51.9 Vitamin B12 deficiency anemia, unspecified; E03.9 Hypothyroidism, unspecified; E11.9 Type 2 diabetes mellitus without complications; E55.9 Vitamin D deficiency, unspecified; E61.1 Iron deficiency; E78.5 Hyperlipidemia, unspecified; K75.81 Nonalcoholic steatohepatitis (NASH); E66.01 Morbid (severe) obesity due to excess calories; R74.01 Elevation of levels of liver transaminase levels
CPT/HCPCS: 36415; 80053; 80061; 82043; 82306; 82570; 82607; 82728; 83036; 83540; 83550; 84443; 85025

== ENCOUNTER → 2024-07-09 | Outpatient (CLI) | payer MEDICARE ==
[2024-07-09 09:53] LABS: Basophils % (A) 1 %; Eosinophils # (A) 0.2 k/uL (0-0.7); Eosinophils % (A) 3 %; HCT 42.4 % (34.0-46.0); HGB 14.1 gm/dL (11.4-16.0); Lymphocytes # (A) 1.8 k/uL (1.0-4.8); Lymphocytes % (A) 30 %; MCH 29.6 pg (25.0-35.0); MCHC 33.1 g/dL (31.0-37.0); MCV 89.3 fL (80.0-100.0); Mean Platelet Volume 8.3; Monocytes # (A) 0.4 k/uL (0-1.0); Monocytes % (A) 7 %; Neutrophils # (A) 3.6 k/uL (1.3-7.7); Neutrophils % (A) 58 %; Platelet Count 198 k/uL (150-450); RBC 4.75 m/uL (3.80-5.40); RDW 13.4 % (11.5-15.5); WBC 6.1 k/uL (3.8-10.6)
[2024-07-09 10:11] LABS: ALT 45 U/L (4-34); AST 35 U/L (14-36); African American GFR (CKD) >90 (>60 ml/min/1.73 sqM); Albumin 4.6 g/dL (3.5-5.0); Alkaline Phosphatase 68 U/L (38-126); Anion Gap 9 mmol/L; Blood Urea Nitrogen 13 mg/dL (7-17); Calcium 9.5 mg/dL (8.4-10.2); Carbon Dioxide 31 mmol/L (22-30); Chloride 99 mmol/L (98-107); Glucose 118 mg/dL (74-99); Non-African American GFR(CKD) >90 (>60 ml/min/1.73 sqM); Potassium 4.2 mmol/L (3.5-5.1); Sodium 139 mmol/L (137-145); Total Bilirubin 1.3 mg/dL (0.2-1.3); Total Protein 7.1 g/dL (6.3-8.2)
== END | disposition home or self-care (01) ==
LOC: RADBDWWP 09:18
PROVIDERS: ATTEND Family Medicine
DX: N95.9 Unspecified menopausal and perimenopausal disorder (principal)
CPT/HCPCS: 80053; 85025

== ENCOUNTER → 2024-08-14 | Outpatient (CLI) | payer MEDICARE ==
--- NOTE | 2024-08-15 12:48 | MR ---
EXAMINATION TYPE: MR foot LT wo con DATE OF EXAM: 08/14/2024 1:28 PM COMPARISON: None. CLINICAL INDICATION: Female, 64 years old with history of M77.42 METATARSALGIA, LEFT FOOT, Lt foot me tatarsalgia, 2nd digit anterior joint lump and pain TECHNIQUE: Multiplanar, multisequence MR imaging of the forefoot was performed administration of IV gadolinium contrast. MR contrast: IV Contrast: mL ( none if empty) FINDINGS: Palpable abnormality described in history correlates with a joint effusion at the first digit metatar sophalangeal joint with geyser phenomenon dorsally. There are small joint effusions at the second thi rd and fourth metatarsophalangeal joints present. Fluid surrounding the flexor hallucis longus tendon series 601 image 34. There is no evidence of bone marrow edema or fracture. There is no periosteal reaction. Medial and la teral hallux sesamoids have a normal appearance. There is no evidence of a plantar plate injury. Musculature demonstrates age-appropriate signal and volume. There is no evidence of significant subcu taneous soft tissue edema. There is no organized soft tissue fluid collection. There is no evidence of synovitis. There is no evidence of intermetatarsal bursitis. No Mortons neuro ma is present. Flexor tendons are intact. Extensor tendons are intact. Lisfranc ligament proper is intact. Capsular ligaments are intact. IMPRESSION: 1. No evidence for fracture. 2. Palpable abnormality at the first digit metatarsophalangeal joint correlates with first digit mid dle tarsal phalangeal joint effusion with geyser phenomenon. Additional joint effusions at the second third fourth digits also present at the metatarsophalangeal joint with geyser phenomenon dorsally. 3. Flexor hallucis longus tenosynovitis. [facility], , 08/15/2024 12:46 PM
== END | disposition home or self-care (01) ==
LOC: RADMRIMAIN 12:27
PROVIDERS: ATTEND Internal Medicine Rheumatology
DX: M25.475 Effusion, left foot (principal); M65.972 Unspecified synovitis and tenosynovitis, left ankle and foot; T14.8XXA Other injury of unspecified body region, initial encounter